=== PATIENT | female | born 1985 | race Caucasian/White ===

== ENCOUNTER 2019-07-18 20:12 | Emergency (ER) | payer OTHER, SELFPAY ==
--- NOTE | ~2019-07-18 | XR_ITS ---
EXAMINATION: XR chest 2V 07/18/2019 21:01 INDICATION: Chest pain. PROCEDURE: 2 view chest COMPARISON: No prior studies for comparison. FINDINGS: The lungs are clear. The cardiomediastinal silhouette is within normal limits. There are no pleural effusions. There is no pneumothorax suspected. IMPRESSION: 1: NO ACUTE CARDIOPULMONARY DISEASE. Reviewed, dictated and finalized at location A.
--- NOTE | ~2019-07-18 | CT_ITS ---
EXAMINATION: CT cervical spine wo con DATE: 07/18/2019 21:28 INDICATION: Neck pain TECHNIQUE: Computed tomography (CT) of the cervical spine was performed without intravenous contrast. The dose-length product was 417 mGy-cm. Automated exposure control and iterative reconstruction tech [id number] were employed. COMPARISON: None FINDINGS: Straightening of cervical lordosis, likely due to muscle spasm or patient positioning. Vert ebral bodies and disc heights are preserved. Odontoid process within normal limits. No evidence for p erched facet. No paraspinal soft tissue abnormality. Lung apices are normal. Craniovertebral junction is normal. IMPRESSION: 1. No acute abnormality of the cervical spine. Reviewed, dictated and finalized at location A.
[2019-07-18 20:15] VITALS: PULSE 89; PULSE 91; RESP 20; TEMP 37.2; O2SAT 100
--- NOTE | 2019-07-18 20:22 | ECG_ITS ---
Measurements Intervals [place] Rate: 96 P: 30 MA: 171 QRS: 26 QRSD: 80 T: 32 QT: 323 QTc: 408 Interpretive Statements SINUS RHYTHM POSSIBLE LEFT ATRIAL ENLARGEMENT BASELINE ARTIFACT- V6 BORDERLINE ECG Electronically Signed On 07-19-2019 7:46:37 CDT by Jon Gil D.O.
--- NOTE | 2019-07-18 20:29 | ED.CHESTPAIN ---
HPI - Chest Pain General Chief Complaint: Chest Pain Stated Complaint: neck, chest, r arm pain Time Seen by Provider: 07/18/19 20:15 Source: RN notes reviewed History of Present Illness HPI narrative: Patient presents to emergency department from home for right-sided neck pain. Patient states that pain began approximately 1 week ago located in the right posterior lateral neck. Patient states the pain is described as achy in nature and would improve with ibuprofen. Patient states pain has been progressively worsen. She states that approximately 1 month ago she began to have problems with the left side of her neck seen her PCP and been prescribed a muscle relaxer. She states she took muscle relaxer tonight at around 5 PM with no relief. Patient states tonight the pain radiated down into her right superior anterior chest and tingling in her right arm with chest pain and tingling in her arm now resolved. Patient denies any trauma or injury. States pain is improved with laying flat and worse with sitting up and movement. Denies any fevers or chills shortness of breath abdominal pain or any other symptoms. Patient denies any chance of denies being on control pills Related Data Allergies Allergy/AdvReac Type Severity Reaction Status Date / Time No Known Allergies Allergy Verified 07/18/19 20:19 Review of Systems Review of Systems: Narrative: Gen.: Denies fevers or chills Eyes: Denies eye pain or visual change ENT: Denies congestion Respiratory: Denies shortness of breath or cough CV: See HPI GI: Denies abdominal pain nausea, emesis or diarrhea denies burning, urgency, frequency or hematuria Musculoskeletal: See HPI Neuro: De reports tingling of right arm, denies weakness Skin: Denies rash Except as documented, all other systems reviewed and negative [facility] Past Medical History Medical History (Updated 07/19/19 @ 00:17 by Sung Coombs DO) Patient denies significant medical history Social History Social History (Updated 07/18/19 @ 20:30 by Sung Coombs DO) Smoking status: Never smoker Gender identity (if verbalized by the patient): Female Exam Narrative: Exam Narrative: APPEARANCE: No acute distress, nontoxic, resting in bed EYES: EOMI HEENT: Normocephalic, atraumatic, OMM Neck: Supple, no midline tenderness palpation, tender palpation right paravertebral muscle C5-7 and right trapezius muscle, pain increased with rotation of the head to the right RESPIRATORY: No respiratory distress Clear to auscultation bilaterally with no rhonchi wheezing or rales. CARDIOVASCULAR: Regular rate and rhythm without murmurs rubs or gallops. Chest: Tender palpation over the right anterior chest wall ABDOMINAL: Soft, nontender, nondistended, no rebound or guarding MUSCULOSKELETAl: Moves all extremities. No clubbing, cyanosis or edema. Bilateral radial pulse 2+ NEURO: Awake and alert. Following commands, speech normal, no focal deficits muscle strength 5 out of 5 in the bilateral upper extremities SKIN:: Warm, dry. No rashes lesions or abrasions PSYCHIATRIC: Normal affect/mood, Course Course Emergency Course: Patient meets PERC rule criteria and no further testing needs to be performed for pulmonary embolism. Patient states pain is improved with Toradol Discussed with patient results of workup and diagnosis. Discussed need for follow-up with primary care, proper use of medication, and reasons to return to the emergency department. Patient understands and agrees to current treatment plan. Patient has been using methocarbamol and will have her switch to Flexeril Vital Signs Vital signs: Vital Signs Temperature 98.9 F 07/18/19 20:15 Pulse Rate 89 07/18/19 20:15 Respiratory Rate 20 07/18/19 20:15 Pulse Oximetry 100 07/18/19 20:15 Temperature 98.9 F 07/18/19 20:15 Pulse Rate 65 07/18/19 23:12 Respiratory Rate 18 07/18/19 23:12 Blood Pressure 118/81 07/18/19 23:12 Pulse Oximetry
[2019-07-18 20:32] LABS: Basophils Absolute Auto 0.1 K/mm3 (0.0-0.1); Basophils Percent Auto 0.5 % (0.2-1.2); Eosinophils Absolute Auto 0.1 K/mm3 (0-0.3); Hematocrit 39.7 % (37.0-47.0); Hemoglobin 12.1 g/dL (12.0-15.0); Immature Granulocyte Absolute 0.02 K/mm3 (0.00-0.031); Immature Granulocyte Percent A 0.2 % (0-0.5); Lymphocytes Absolute Auto 3.64 K/mm3 (0.9-3.2); Lymphocytes Percent Auto 38.6 % (18.3-44.2); Mean Corpuscular HGB Conc 30.5 g/dl (32-36); Mean Corpuscular Hemoglobin 24.2 pg (26-34); Mean Corpuscular Volume 79.4 fl (80-100); Mean Platelet Volume 9.6 fl (7.4-10.4); Monocytes Absolute Auto 0.6 K/mm3 (0.1-0.6); Monocytes Percent Auto 6.3 % (2.6-8.5); Neutrophils Percent Auto 53.4 % (45.5-73.1); Platelet Count Result 446 k/mm3 (150-375); Red Cell Distribution Width 16.1 % (11.5-14.5); White Blood Count 9.4 K/mm3 (4.5-10.0)
[2019-07-18 20:44] LABS: Blood Urea Nitrogen 11 mg/dL (7-17); Calcium 9.2 mg/dL (8.4-10.2); Carbon Dioxide 25 mmol/L (22-30); Chloride 102 mmol/L (98-107); Estimated Glomerular Filt Rate > 60; Glucose 109 mg/dL (65-105); Partial Thromboplastin Time 28.5 SECONDS (22.3-36.8); Potassium 3.5 mmol/L (3.4-5.0); Prothrombin Time 13.2 Seconds (11.1-14.7); Sodium 138 mmol/L (137-145)
[2019-07-18 20:55] LABS: Troponin I < 0.012 ng/mL (0.000-0.034)
[2019-07-18] MEDS: KETOROLAC 30 MG/ML VIAL (*BKC) IV PUSH (21:04)
[2019-07-18 23:12] VITALS: BP 118/81; PULSE 65; RESP 18; O2SAT 98
[2019-07-18 23:56] LABS: Troponin I < 0.012 ng/mL (0.000-0.034)
[2019-07-19 00:32] VITALS: BP 134/77; PULSE 84; RESP 18; O2SAT 98
== END 2019-07-19 00:33 | disposition home or self-care (01) ==
PROVIDERS: Emergency Provider Emergency Medicine
DX: S16.1XXA Strain of muscle, fascia and tendon at neck level, initial encounter (principal); M62.830 Muscle spasm of back; X58.XXXA Exposure to other specified factors, initial encounter; R94.31 Abnormal electrocardiogram [ECG] [EKG]
CPT/HCPCS: 36415; 71046; 72125; 80048; 84484; 85025; 85610; 85730; 93005; 96374; 99284; J0131; J1885

== ENCOUNTER 2020-03-07 08:19 | Emergency (ER) | payer OTHER, SELFPAY ==
[2020-03-07 08:29] VITALS: BP 133/66; PULSE 102; RESP 18; TEMP 36.4; O2SAT 98
--- NOTE | 2020-03-07 08:31 | ED.NAVMDI ---
HPI - Nausea/Vomiting/Diarrhea General Chief complaint: Nausea/Vomiting/Diarrhea Stated complaint: covid +/abdominal pain and vomiting Time Seen by Provider: 03/07/20 08:22 History of Present Illness HPI Narrative: 35 yo female with recent positive COVID test presents to the ED for abdominal pain, nausea, vomiting. She reports that she has had nausea and vomiting for the past week. Intially seen at urgent care 7 days ago, tested for COVID and prescribed zofran. The zofran was helping, but she has run out. Now she is having bilateral upper abdominal pain as well. She has not tried anything else for her symptoms. She has not contacted her PCP. Additionally she does have a cough. No SOB, fever. Related Data Allergies Allergy/AdvReac Type Severity Reaction Status Date / Time No Known Allergies Allergy Verified 03/07/20 08:34 Review of Systems Review of Systems: All systems reviewed & are unremarkable except as noted in HPI and below Constitutional: Constitutional: Denies chills and Denies fever(s) Cardiovascular: Cardiovascular: Denies chest pain Respiratory: Respiratory: Denies dyspnea Gastrointestinal: Gastrointestinal: Reports abdominal pain, Reports nausea and Reports vomiting Genitourinary: Genitourinary: Denies dysuria Neurologic: Denies confusion, Denies dizziness and Denies weakness PMFSH Past Medical History Medical History Patient denies significant medical history Social History Social History Smoking status: Never smoker Gender identity (if verbalized by the patient): Female Exam Const: General: no acute distress and alert Nutritional Appearance: obese Orientation/consciousness: patient oriented x3 HENMT: Head: normal to inspection Neck: Neck: normal visual inspection and no lymphadenopathy Chest: Chest palpation & inspection: no tenderness Resp: Effort & Inspection: normal respiratory effort Auscultation: clear to auscultation bilaterally, no rales, no rhonchi and no wheezes Cardio: Jugular venous distension: no JVD Rate: regular rate Rhythm: regular rhythm Heart sounds: no murmurs GI: Inspection: non-distended GI Palp: Yes Soft to palpation, Yes Tenderness to palpation present (GI) (epigastrium), No Guarding due to palpation present (GI) and No Rebound tenderness present Skin: General skin exam: normal color Neuro: General: patient oriented x3, moves all extremities, no focal motor deficits and CN's II-XI intact bilaterally Speech: normal speech Extrem: General: no edema Psych: Appearance: well kempt Affect: normal affect Course Vital Signs Vital signs: Vital Signs Temperature 36.4 C L 03/07/20 08:29 Pulse Rate 102 H 03/07/20 08:29 Respiratory Rate 18 03/07/20 08:29 Blood Pressure 133/66 03/07/20 08:29 Pulse Oximetry 98 03/07/20 08:29 Temperature 36.4 C L 03/07/20 08:29 Pulse Rate 72 03/07/20 11:04 Respiratory Rate 18 03/07/20 11:04 Blood Pressure 124/75 03/07/20 11:04 Pulse Oximetry 96 03/07/20 11:04 MDM - Nausea/Vomiting/Diarrhea MDM Narrative Medical decision making narrative: Labs reassuring. Feeling better after treatment. Differential Diagnosis Differential diagnosis: Likely gastroenteritis and dehydration Medical Records Attestation: I reviewed the patient's medical records. Lab Data Attestation: I reviewed the patient's lab results. Result diagrams: 03/07/20 08:39 03/07/20 09:49 Labs: Lab Results 03/07/20 03/07/20 Range/Units 08:39 09:49 WBC 3.5 L (4.5-10.0) K/mm3 RBC 4.93 (4.2-5.4) M/mm3 Hgb 12.1 (12.0-15.0) g/dL Hct 37.7 (37.0-47.0) % MCV 76.5 L (80-100) fl MCH 24.5 L (26-34) pg MCHC 32.1 (32-36) g/dl RDW 15.6 H (11.5-14.5) % Plt Count 215 D (150-375) k/mm3 MPV 10.0 (7.4-10.4) fl Immature Gran % (Auto) 0.3 (0-0.5) % Neut % (
[2020-03-07] MEDS: ONDANSETRON INJ 4 MG/2 ML VIAL IV PUSH (08:55)
[2020-03-07] MEDS: SODIUM CHLORIDE 0.9% IV 1,000 ML 999 ML IV CONT (08:55)
[2020-03-07] MEDS: PANTOPRAZOLE SODIUM IV 40 MG VIAL IV PUSH (08:55)
[2020-03-07 09:06] LABS: Basophils Percent Auto 0.3 % (0.2-1.2); Hematocrit 37.7 % (37.0-47.0); Hemoglobin 12.1 g/dL (12.0-15.0); Immature Granulocyte Absolute 0.01 K/mm3 (0.00-0.031); Immature Granulocyte Percent A 0.3 % (0-0.5); Lymphocytes Absolute Auto 0.93 K/mm3 (0.9-3.2); Mean Corpuscular HGB Conc 32.1 g/dl (32-36); Mean Corpuscular Hemoglobin 24.5 pg (26-34); Mean Corpuscular Volume 76.5 fl (80-100); Monocytes Absolute Auto 0.2 K/mm3 (0.1-0.6); Monocytes Percent Auto 5.2 % (2.6-8.5); Neutrophils Absolute Auto 2.3 K/mm3 (1.3-6.7); Neutrophils Percent Auto 67.2 % (45.5-73.1); Platelet Count Result 215 k/mm3 (150-375); Red Blood Count 4.93 M/mm3 (4.2-5.4); Red Cell Distribution Width 15.6 % (11.5-14.5); White Blood Count 3.5 K/mm3 (4.5-10.0)
[2020-03-07] MEDS: DICYCLOMINE HCL INJ 20 MG/2 ML VIAL IM (10:09)
[2020-03-07 10:28] LABS: Alanine Aminotransferase 14 U/L (4-35); Albumin Level 3.5 g/dL (3.5-5.1); Alkaline Phosphatase 61 U/L (38-126); Anion Gap 6 mmol/L (8-16); Aspartate Amino Transferase 24 U/L (14-36); Bilirubin,Total 0.1 mg/dL (0.2-1.3); Blood Urea Nitrogen 7 mg/dL (7-17); Carbon Dioxide 25 mmol/L (22-30); Chloride 106 mmol/L (98-107); Estimated CRCL calculation 153 ml/min; Estimated Glomerular Filt Rate > 60; Glucose 99 mg/dL (65-105); Lipase 73 U/L (23-300); Sodium 137 mmol/L (137-145)
[2020-03-07 11:04] VITALS: BP 124/75; PULSE 72; RESP 18; O2SAT 96
--- NOTE | 2020-03-07 11:05 | PC.NURSE ---
abd pain reduced to 6/10 and no further nausea
== END 2020-03-07 11:28 | disposition home or self-care (01) ==
PROVIDERS: Emergency Provider Emergency Medicine
DX: U07.1 COVID-19 (principal); R11.2 Nausea with vomiting, unspecified; R10.12 Left upper quadrant pain; R10.11 Right upper quadrant pain
CPT/HCPCS: 36415; 80053; 83690; 85025; 96365; 96372; 96375; 99284; A9270; C9113; J0131; J0500; J2405; J7030

== ENCOUNTER 2020-08-14 08:11 | Outpatient (CLI) | payer OTHER, SELFPAY ==
[2020-08-14 10:07] LABS: Hemoglobin 11.4 g/dL (12.0-15.0); Mean Corpuscular HGB Conc 31.7 g/dl (32-36); Mean Corpuscular Hemoglobin 25.1 pg (26-34); Mean Corpuscular Volume 79.3 fl (80-100); Platelet Count Result 318 k/mm3 (150-375); Red Blood Count 4.54 M/mm3 (4.2-5.4); Red Cell Distribution Width 16.9 % (11.5-14.5); White Blood Count 5.7 K/mm3 (4.5-10.0)
[2020-08-14 10:15] LABS: Glucose 1 Hour PP 50gm Dose 149 mg/dL
[2020-08-14 10:54] LABS: HIV 1/2 Ab P24 Ag Result Negative (Negative)
[2020-08-14 11:09] LABS: Hepatitis B Surface Antigen Negative (Negative); Rubella IgG Antibody 11.8 IU/ML
[2020-08-16 08:55] LABS: Rapid Plasma Reagin Non-Reactive (NonReactive)
[2020-08-18 17:59] LABS: CMV IgG Antibody <0.60 U/mL (<0.60)
== END 2020-08-14 08:12 | disposition home or self-care (01) ==
PROVIDERS: Visit Provider Obstetrics & Gynecology
DX: N92.5 Other specified irregular menstruation (principal)
CPT/HCPCS: 36415; 82947; 84702; 85027; 86592; 86644; 86703; 86747; 86762; 86787; 86850; 86900; 86901; 87086; 87088; 87340; G0432

== ENCOUNTER 2020-08-20 07:04 | Outpatient (CLI) | payer OTHER, SELFPAY ==
[2020-08-20 08:14] LABS: Glucose Fasting Gestational 95 mg/dL (>/=95)
[2020-08-20 10:02] LABS: Glucose 1 Hour Gest 153 mg/dL (>/=180)
[2020-08-20 11:03] LABS: Glucose 2 Hour Gest 135 mg/dL (>/= 155)
[2020-08-20 12:17] LABS: Glucose 3 Hour Gest 65 mg/dL (>/=140)
== END 2020-08-20 07:05 | disposition home or self-care (01) ==
PROVIDERS: Visit Provider Obstetrics & Gynecology
DX: R73.09 Other abnormal glucose (principal)
CPT/HCPCS: 36415; 82951; 82952

== ENCOUNTER 2021-01-07 07:01 | Outpatient (CLI) | payer OTHER, SELFPAY ==
[2021-01-07 07:39] LABS: Hematocrit 32.4 % (37.0-47.0); Hemoglobin 10.3 g/dL (12.0-15.0)
[2021-01-07 08:01] LABS: Glucose Fasting Gestational 102 mg/dL (>/=95)
[2021-01-07 09:45] LABS: Glucose 1 Hour Gest 172 mg/dL (>/=180)
[2021-01-07 10:25] LABS: HIV 1/2 Ab P24 Ag Result Negative (Negative)
[2021-01-07 10:52] LABS: Glucose 2 Hour Gest 123 mg/dL (>/= 155)
[2021-01-07 11:34] LABS: Glucose 3 Hour Gest 71 mg/dL (>/=140)
== END 2021-01-07 07:02 | disposition home or self-care (01) ==
PROVIDERS: PCP Family Medicine; Visit Provider Obstetrics & Gynecology
DX: Z34.91 Encounter for supervision of normal pregnancy, unspecified, first trimester (principal); Z3A.00 Weeks of gestation of pregnancy not specified
CPT/HCPCS: 36415; 82951; 82952; 85014; 85018; 86703; G0432

== ENCOUNTER 2021-03-08 10:32 | Inpatient (IN) | payer OTHER, SELFPAY ==
[2021-03-08] VITALS (122 sets, daily range): BP systolic 58–185; BP diastolic 36–114; PULSE 44–114; RESP 14–23; TEMP 35.8–36.9; O2SAT 86–100; BMI 40.2
--- NOTE | ~2021-03-08 | US_ITS ---
US renal BI 03/10/2021 12:37 Procedure: Realtime transabdominal ultrasound of the kidneys and bladder. Indication: Increased creatinine postdelivery Comparison: No prior studies for comparison. Findings: Renal echotexture is normal bilaterally without hydronephrosis, contour deforming mass or r enal calculus. The right kidney measures 12.1 cm and left kidney measures 12.3 cm. Bladder is not pete quately visualized due to recent an enlarged uterus. No gross abnormalities. Impression: 1: Unremarkable renal ultrasound. No stones, masses or hydronephrosis. Reviewed, dictated and finalized at location B. ENT BILLER Impression: 1: Unremarkable renal ultrasound. No stones, masses or hydronephrosis.
--- NOTE | ~2021-03-08 | US_ITS ---
EXAMINATION: US pelvic complete DATE: 03/10/2021 12:38 INDICATION: History of vaginal bleeding Comparison:No prior studies for comparison. TECHNIQUE: Multiple transabdominal sonographic images of the pelvis performed. FINDINGS: The uterus measures 23 x 12.4 x 9.7 cm. The endometrial complex measures 6.6 mm. Trace flui d in the endometrium. The ovaries are not visualized. Trace free fluid in the right adnexa. There is no free fluid in the pelvis. There are no abnormal masses seen on either side. IMPRESSION: 1. Enlarged uterus. Trace fluid in the endometrium which is normal thickness. 2: Trace free fluid in the pelvis, likely physiologic. Reviewed, dictated and finalized at location B. GENCY MEDICAL DISPATCHER
[2021-03-08 11:07] LABS: Basophils Absolute Auto 0.1 K/mm3 (0.0-0.1); Basophils Percent Auto 0.5 % (0.2-1.2); Eosinophils Percent Auto 0.1 % (0-4.4); Hematocrit 31.4 % (37.0-47.0); Hemoglobin 10.1 g/dL (12.0-15.0); Immature Granulocyte Absolute 0.06 K/mm3 (0.00-0.031); Immature Granulocyte Percent A 0.7 % (0-0.5); Lymphocytes Absolute Auto 1.74 K/mm3 (0.9-3.2); Mean Corpuscular HGB Conc 32.2 g/dl (32-36); Mean Corpuscular Hemoglobin 24.4 pg (26-34); Mean Corpuscular Volume 75.8 fl (80-100); Mean Platelet Volume 10.9 fl (7.4-10.4); Monocytes Absolute Auto 0.7 K/mm3 (0.1-0.6); Monocytes Percent Auto 7.2 % (2.6-8.5); Neutrophils Absolute Auto 6.6 K/mm3 (1.3-6.7); Neutrophils Percent Auto 72.5 % (45.5-73.1); Platelet Count Result 243 k/mm3 (150-375); Red Blood Count 4.14 M/mm3 (4.2-5.4); Red Cell Distribution Width 14.6 % (11.5-14.5); White Blood Count 9.2 K/mm3 (4.5-10.0)
[2021-03-08 11:17] LABS: Alanine Aminotransferase 11 U/L (4-35); Albumin Level 2.8 g/dL (3.5-5.1); Alkaline Phosphatase 488 U/L (38-126); Anion Gap 5 mmol/L (8-16); Aspartate Amino Transferase 17 U/L (14-36); Bilirubin,Total 0.2 mg/dL (0.2-1.3); Blood Urea Nitrogen 14 mg/dL (7-17); Calcium 8.2 mg/dL (8.4-10.2); Carbon Dioxide 19 mmol/L (22-30); Chloride 109 mmol/L (98-107); Creatinine Urine 325.4 mg/dL; Estimated Glomerular Filt Rate > 60; Glucose 90 mg/dL (65-110); Sodium 133 mmol/L (137-145); Uric Acid 6.8 mg/dL (2.5-7.5)
--- NOTE | 2021-03-08 11:33 | PC.NURSE ---
Dr. Raines's office notified of pt's initial BP's and to have MD call.
[2021-03-08] MEDS: ACETAMINOPHEN 500 MG TABLET 1000 MG PO (11:38)
--- NOTE | 2021-03-08 12:05 | PC.NURSE ---
Dr. Raines returned call and informed severe BP's continue and reported CBC and CMP results. also informed of maternal bradycardia at 45-50 and pt is asymptomatic. Order received to admit, start severe hypertensive protocol with Hydralazine, start Magnesium sulfate, EKG, and plan for 1600 C/Section.
--- NOTE | 2021-03-08 12:19 | ECG_ITS ---
Measurements Intervals [place] Rate: 46 P: 15 [place]: 146 QRS: 20 QRSD: 76 T: 31 QT: 446 QTc: 392 Interpretive Statements SINUS BRADYCARDIA ABNORMAL ECG Electronically Signed On 03-08-2021 13:11:29 PRINTING BINDERY ASSISTANT by Jon Gil D.O.
[2021-03-08 12:21] LABS: Add Urine Microscopic? YES; Appearance Urine Cloudy (Clear); Bilirubin Urine Negative (Negative); Blood Urine 1+ (Negative); Color Urine Yellow (Yellow); Glucose Urine UA Negative (Negative); Ketones Urine Negative (Negative); Leukocyte Esterase Ur Negative LEU/UL (Negative); Mucus Urine Rare /lpf; Nitrate Urine Negative (Negative); Protein Urine 3+ mg/dL (Negative); RBC Urine 0-2 /hpf (0-2); Specific Grav Ur 1.028 (1.001-1.035); Squamous Epithelial Cell Urine Moderate /hpf (Few); Urobilinogen Urine Negative mg/dL (<2.0); WBC Urine 0-3 /hpf
[2021-03-08 12:43] LABS: Total Protein Urine Random > 600 mg/dL
[2021-03-08] MEDS: LACTATED RINGERS 1,000 ML 75 ML IV CONT (13:00)
[2021-03-08] MEDS: hydrALAZINE HCL 20 MG/ML VIAL 5 MG IV PUSH (13:04)
[2021-03-08] MEDS: MAGNESIUM SULF 4 GM/WATER100ML 4 GM/100 ML BAG IVPB (13:13)
--- NOTE | 2021-03-08 13:15 | LDADM ---
This patient, Malcolm Gilmore, was admitted to [facility] on 03/08/21 at 10:32. Plans for surgery/ and pain management were discussed with patient. Patient/family oriented to hospital policies and general routines including ID bracelet, bed and alarms, visiting hours, pain management, procedures, bathroom and other care routines, personal items, smoking policy, room service/diet and guest tray routines, infant security routines, and visiting hours. Patient/Family are encouraged to report perceived risks to care and to ask questions if they do not understand what they are told or what they should do. See OBIX for further documentation.
[2021-03-08] MEDS: MAGNESIUM SULF 20GM/WATER500ML 500 ML 50 MG IV CONT (13:42)
--- NOTE | 2021-03-08 15:36 | WPDANESEPPF ---
Anes - Initial Pre Proc Eval Procedure: Operation Date: 03/08/21 16:00 Proposed Procedures p Section - Anthony Raines MD Date/Time: 03/08/21 15:36 Surgeon: Anthony Raines MD Pre Op Diagnosis: HIP Eval Patient Data Age: 36 Gender: F Height: 1.73 m Weight: 120 kg Last Vital Signs Temp 36.9 C 03/08/21 13:13 Pulse 61 03/08/21 15:30 Resp 16 03/08/21 14:00 BP 158/93 H 03/08/21 15:30 Pulse Ox 99 03/08/21 15:32 Allergies Allergy/AdvReac Type Severity Reaction Status Date / Time No Known Allergies Allergy Verified 03/02/21 12:38 Home Medications Medication Instructions Recorded Confirmed Type famotidine [Pepcid] 20 mg PO BID #30 tablet 03/07/20 03/08/21 Rx ondansetron HCl [Zofran] 4 mg PO Q6H PRN #10 tablet 03/07/20 03/08/21 Rx ferrous sulfate 325 mg PO DAILY 03/02/21 03/08/21 History sertraline [Zoloft] 25 mg PO DAILY 03/02/21 03/08/21 History PNV cmb#95-ferrous fumarate-FA 1 tablet PO DAILY 03/08/21 03/08/21 History [] Laboratory Tests 03/08/21 03/08/21 03/08/21 10:56 10:56 10:56 WBC 9.2 K/mm3 K/mm3 (4.5-10.0) RBC 4.14 M/mm3 L M/mm3 (4.2-5.4) Hgb 10.1 g/dL L g/dL (12.0-15.0) Hct 31.4 % L % (37.0-47.0) MCV 75.8 fl L fl (80-100) MCH 24.4 pg L pg (26-34) MCHC 32.2 g/dl g/dl (32-36) RDW 14.6 % H % (11.5-14.5) Plt Count 243 k/mm3 k/mm3 (150-375) MPV 10.9 fl H fl (7.4-10.4) Immature Gran % (Auto) 0.7 % H % (0-0.5) Neut % (Auto) 72.5 % % (45.5-73.1) Lymph % (Auto) 19.0 % % (18.3-44.2) Boyd % (Auto) 7.2 % % (2.6-8.5) Eos % (Auto) 0.1 % % (0-4.4) Baso % (Auto) 0.5 % % (0.2-1.2) Lymph # (Auto) 1.74 K/mm3 K/mm3 (0.9-3.2) Boyd # (Auto) 0.7 K/mm3 H K/mm3 (0.1-0.6) Eos # (Auto) 0.0 K/mm3 K/mm3 (0-0.3) Baso # (Auto) 0.1 K/mm3 K/mm3 (0.0-0.1) Abs Immat Gran (auto) 0.06 K/mm3 H K/mm3 (0.00-0.031) Absolute Neuts (auto) 6.6 K/mm3 K/mm3 (1.3-6.7) Absolute Nucleated RBC 0.0 K/mm3 K/mm3 (0.0-0.012) Nucleated RBC % 0.0 % % (0.0-0.2) Sodium 133 mmol/L L mmol/L (137-145) Potassium 4.0 mmol/L mmol/L (3.4-5.0) Chloride 109 mmol/L H mmol/L (98-107) Carbon Dioxide 19 mmol/L L mmol/L (22-30) Anion Gap 5 mmol/L L mmol/L (8-16) BUN 14 mg/dL D mg/dL (7-17) Creatinine 0.90 mg/dL mg/dL (0.7-1.0) Estim Creat Clear Calc Not Reportable Estimated GFR > 60 (59 - ) Glucose 90 mg/dL mg/dL (65-110) Uric Acid 6.8 mg/dL mg/dL (2.5-7.5) Calcium 8.2 mg/dL L mg/dL (8.4-10.2) Total Bilirubin 0.2 mg/dL mg/dL (0.2-1.3) AST 17 U/L U/L (14-36) ALT 11 U/L U/L (4-35) Alkaline Phosphatase 488 U/L H U/L (38-126) Total Protein 5.0 g/dL L g/dL (6.3-8.2) Albumin 2.8 g/dL L g/dL (3.5-5.1) Urine Color Urine Appearance Urine pH Ur Specific [place] Urine Protein Urine Glucose (UA) Urine Ketones Ur Blood (Man) Urine Nitrate Urine Bilirubin Urine Urobilinogen Leukocyte Esterase Rfl Urine RBC Urine WBC Ur Squamous Epith Cells Hyaline Casts Urine Mucus U Random Total Protein > 600 mg/dL mg/dL Urine Creatinine 325.4 mg/dL mg/dL Protein/Creat Ratio 2 > 1.84 mg/mg H mg/mg (0-0.20) RPR Blood Type Antibody Screen 03/08/21 03/08/21 03/08/21 10:56 13:08 13:08 WBC RBC Hgb Hct MCV MCH
[2021-03-08] MEDS: SCOPOLAMINE 1.5 MG PATCH TRANSDERM (15:49)
--- NOTE | 2021-03-08 16:12 | PC.NURSE ---
Magnesium sulfate turned off per anesthesia request for pt transport to OR.
--- NOTE | 2021-03-08 16:16 | PM.IMHP ---
H&P: HPI History of Present Illness Date/Time: 03/08/21 16:16 36-year-old 2 para 1001 female presents at 36 weeks with complaints of the past 24-48 hours headache without visual changes also mild cramping. She has had good movement and no bleeding. Denies any visual changes. care to this point has been essentially uncomplicated no significant issues. When seen in the office today blood pressure was 150 to 160 over 90s and 3+ proteinuria. Sent for evaluation to labor and delivery with continued persistent elevated blood pressures with headache unrelieved by Tylenol and labs essentially normal other than proteinuria. Chief Complaint: Headache Review of Systems Review of Systems: All systems reviewed & are unremarkable except as noted in HPI and below PMFSH Past Medical History Medical History Anxiety GERD (gastroesophageal reflux disease) Hypertension Family History Family History Father Deaf Hypertension Mother Deaf Breast cancer in female Grandparent Breast cancer in female Social History Social History Smoking status: Never smoker Second hand tobacco smoke exposure: No Substance use: never Gender identity (if verbalized by the patient): Female Spiritual care concerns: No Meds Home Medications and Allergies Home Medications Medication Instructions Recorded Confirmed Type famotidine [Pepcid] 20 mg PO BID #30 tablet 03/07/20 03/08/21 Rx ondansetron HCl [Zofran] 4 mg PO Q6H PRN #10 tablet 03/07/20 03/08/21 Rx ferrous sulfate 325 mg PO DAILY 03/02/21 03/08/21 History sertraline [Zoloft] 25 mg PO DAILY 03/02/21 03/08/21 History PNV cmb#95-ferrous fumarate-FA 1 tablet PO DAILY 03/08/21 03/08/21 History [] Allergies Allergy/AdvReac Type Severity Reaction Status Date / Time No Known Allergies Allergy Verified 03/02/21 12:38 Vital Signs Vital Signs - 24 hr 03/08/21 11:15 03/08/21 11:19 03/08/21 11:24 Temperature Pulse Rate 45 L Respiratory Rate Blood Pressure 172/88 H Blood Pressure [Right Arm] 172/88 H Pulse Oximetry 99 98 03/08/21 11:26 03/08/21 11:28 03/08/21 11:29 Temperature Pulse Rate 45 L Respiratory Rate Blood Pressure Blood Pressure [Right Arm] 172/88 H Pulse Oximetry 98 99 03/08/21 11:31 03/08/21 11:34 03/08/21 11:39 Temperature Pulse Rate 44 L Respiratory Rate Blood Pressure 161/82 H Blood Pressure [Right Arm] Pulse Oximetry 99 97 03/08/21 11:44 03/08/21 11:46 03/08/21 11:47 Temperature Pulse Rate 45 L Respiratory Rate Blood Pressure 166/84 H Blood Pressure [Right Arm] Pulse Oximetry 99 98 03/08/21 11:52 03/08/21 11:57 03/08/21 12:01 Temperature Pulse Rate 44 L Respiratory Rate Blood Pressure 169/84 H Blood Pressure [Right Arm] Pulse Oximetry 100 99 03/08/21 12:02 03/08/21 12:07 03/08/21 12:12 Temperature Pulse Rate Respiratory Rate Blood Pressure Blood Pressure [Right Arm] Pulse Oximetry 99 98 100 03/08/21 12:57 03/08/21 13:01 03/08/21 13:06 Temperature Pulse Rate 45 L 44 L 45 L Respiratory Rate Blood Pressure 185/97 H 179/90 H 176/92 H Blood Pressure [Right Arm] Pulse Oximetry 100 03/08/21 13:11 03/08/21 13:13 03/08/21 13:16 Temperature 36.9 C Pulse Rate 56 L 44 L 48 L Respiratory Rate 16 Blood Pressure 167/97 H 167/97 H 164/89 H Blood Pressure [Right Arm] Pulse Oximetry 99 99 99 03/08/21 13:21 03/08/21 13:26 03/08/21 13:31 Temperature Pulse Rate 51 L Respiratory Rate Blood Pressure 150/83 H Blood Pressure [Right Arm] Pulse Oximetry 99 97 98 03/08/21 13:32 03/08/21 13:36 03/08/21 13:41 Temperature Pulse Rate 51 L 50 L Respiratory Rate Blood Pressure 157/85 H 146/86 H Blo
[2021-03-08] MEDS: ceFAZolin 3 GM/D5W 100 ML 100 ML IVPB (16:20)
--- NOTE | 2021-03-08 16:22 | WPDHPUPDATE1 ---
History and Physical Update Update Date/Time: 03/08/21 16:22 History and Physical has been reviewed, including an updated exam of the patient. There are NO changes in the patient's condition. Risks, benefits, and alternatives have been discussed and questions answered. Patient agrees to proceed with procedure.
--- NOTE | 2021-03-08 17:47 | P.PCNOB_ITS ---
OB - Delivery Note Procedure Procedure: Procedures Operation Date: 03/08/21 16:00 Actual Procedure Side Surgeon p Section Anthony Raines MD events: Previous and Pre-Eclampsia Route of delivery: Specimen: Yes Quantitative Blood Loss (ml): 2,060 Anesthesia type: Spinal Disposition: PACU Complications: Intraoperative hemorrhage Narrative: Patient prepped draped in usual manner for this procedure. Pfannenstiel incision was made carried down to the fascia which was extended bilaterally the length of the skin incision. Superiorly and inferiorly dissected away from the rectus muscles. Peritoneum was entered extended the length of the incision to enter the peritoneum. Adhesions were noted of the bladder flap to the anterior portion of the uterus along with thin uterine segment and anterior placenta. Incision was then made after the bladder flap was developed with extension of the uterine incision bilaterally bluntly. Vertex was grasped and delivered without difficulty. Cord was clamped and cut and placenta was removed manually. Placenta was fragmented and removed in multiple pieces. Prior to closing the uterine incision of the placenta did appear to be entirely removed and the lower segment was identified to the point where approximation was able to be performed. The uterine incision was approximated using 0 Monocryl in a running interlocking manner with good approximation hemostasis noted. There was a area of bleeding in the midline below the incision which was rendered hemostatic with a [id number] suture of 0 Monocryl. The revaluation revealed the uterine incision to be hemostatic and there being no bleeding below the fascia. The fascial incision was then approximated using 0 Vicryl from the left angle to midline and the right angle to the midline with good approximation hemostasis noted. Subcutaneous tissue was approximated using 0 plain suture and merly were used to approximate the skin edges. Has the patient was being cleaned and moved to the stretcher other still a fair amount of oozing and therefore Bakri balloon will be placed. We will continue to monitor bleeding at this point. Also blood work is obtained and I have discussed with the amount of bleeding that she has had and there is a fair chance that she will need transfusion which he states good understanding of. Carmine Baby Weeks of gestation at delivery: 36 gender: Male Weight (pounds): 5 Weight (ounces): 11 score one minute: 5 score five minutes: 9
--- NOTE | 2021-03-08 17:51 | SUR.OPER ---
Dr. Raines called back to OR due to continued vaginal bleeding.
--- NOTE | 2021-03-08 18:02 | SUR.OPER ---
Bakri balloon was placed by Dr. Raines. 150 ml of NS was inserted. Vaginal packing inserted by .
--- NOTE | 2021-03-08 18:12 | SUR.OPER ---
Dr. Raines called back into OR for drop in BP and concern of internal bleeding.
--- NOTE | 2021-03-08 18:39 | SUR.OPER ---
Abdominal and suprapubic prep with duraprep by Slava COLLINS
--- NOTE | 2021-03-08 18:39 | SUR.OPER ---
dr lozada and dr smith in OR preparing for exploratory laparotomy at 1840. initial surgical count done by cliff keller and brent sesay. instruments,laps, and sharps counted. counts correct. second sount performed by kim roberts rn and brent giang. instruments, laps and sharps counted. counts correct. third count peformed by kim guerrero rn and familia giang. laps and sharps counted. counts correct.
--- NOTE | 2021-03-08 18:39 | SUR.OPER ---
Anesthesia Class 3 and Fire Risk 2.
--- NOTE | 2021-03-08 18:41 | SUR.OPER ---
Vaginal packing removed by Dr. Neri
--- NOTE | 2021-03-08 18:42 | SUR.OPER ---
Leighton balloon deflated and removed by Dr. Neri.
[2021-03-08 18:43] LABS: Hematocrit 26.2 % (37.0-47.0)
--- NOTE | 2021-03-08 18:45 | SUR.OPER ---
New time out completed.
[2021-03-08 19:43] LABS: INR 1.2; Prothrombin Time 15.1 Seconds (11.1-14.7)
[2021-03-08 19:44] LABS: Partial Thromboplastin Time 30.8 SECONDS (22.3-36.8)
[2021-03-08 19:50] LABS: Fibrinogen 139 mg/dl (215-510)
[2021-03-08 20:21] LABS: Hematocrit 26.8 % (37.0-47.0); Hemoglobin 8.8 g/dL (12.0-15.0); Mean Corpuscular HGB Conc 32.8 g/dl (32-36); Mean Corpuscular Hemoglobin 26.5 pg (26-34); Mean Corpuscular Volume 80.7 fl (80-100); Platelet Count Result 187 k/mm3 (150-375); Red Blood Count 3.32 M/mm3 (4.2-5.4); Red Cell Distribution Width 16.1 % (11.5-14.5); White Blood Count 16.8 K/mm3 (4.5-10.0)
--- NOTE | 2021-03-08 20:24 | PC.NURSE ---
gamal watts inserted via dr lozada and dr smith. 125ml of sterile saline injected.
--- NOTE | 2021-03-08 20:31 | P.OPB_ITS ---
Procedure Note - Brief Procedure Note - Brief Date of procedure: 03/08/21 Pre-op diagnosis: HIP Eval postop hemorrhage Post-op diagnosis: other (1. postop hemorrhage/2. L broad ligament hematoma/3. bladder flap bleeding) Procedure performed: exploratory laparotomy Description of procedure: Patient prepped and draped in usual manner for this procedure. [place] were removed subcutaneous sutures and fascial incision sutures were all removed at. At this point [id number] of old blood was noted. Three evaluation of the sub fascial tissue revealed left broad ligament broad ligament hematoma which was evaluated throughout the case and did not change in size. This was oozing from the left edge where it attached to the uterus. Also found was a small vessel bleeding the to wean the bladder and the lower segment of the uterus. Through evaluation throughout revealed no other abnormalities. There was no other bleeding and the uterus was well contracted. The 1st the bleeder between the bladder and the uterus was isolated tied and cauterized. With hemostasis achieved. Thorough evaluation again throughout revealed no change in the hematoma on the left though it continued to ooze at the edge by the uterine incision. The right adnexa and the rest of the uterine incision was noted be hemostatic of the small area which was rendered hemostatic with a [id number] suture. Initially the hematoma was attempted to be rendered hemostatic with a [id number] suture which I did not stop the oozing that was occurring. The uterus was then exteriorized and the broad ligament was opened and the area was palpated of the hematoma again where it originated at the uterine incision. Two [id number] sutures in this area were placed in modified B Whyte suture with hemostasis achieved. As noted above the left broad ligament hematoma did not change in size throughout the case. All of the areas of oozing were thoroughly evaluated for the next 30minutes with in no bleeding or oozing noted. At this point we were reassured that there was no sign further bleeding and the fascia was approximated using 0 Vicryl from the left angle to midline right angle to the midline and the subcutaneous tissue was irrigated approximated 0 plain suture and merly were used to approximate the skin edges. At this point Bakri balloon was placed in the uterus empirically and filled with 125-130 cc of fluid. Vaginal packing was also placed. Patient was then placed on stretcher and moved to the recovery room. Findings were discussed with the patient who had been consented prior to the procedure for the above as well as potential for hysterectomy. We will continue to monitor closely for any further evidence bleeding though at this point as noted above she does seem to have stabilized and clinically she is stable. Anesthesia: epidural Surgeon: Anthony Raines MD Estimated blood loss (mL): 325 Urine output (mL): 50 Drains: Yes Packing: Yes Pathology: none sent Complications: No immediate complications Condition: stable Disposition: other ( Postop area on labor and delivery) Findings: as noted above left broad ligament hematoma and bleeding in the area between the bladder and the lower segment of the uterus. also hemoperitoneum as noted above.
[2021-03-08 20:55] LABS: D Dimer > 20.00 ug/mL (<0.48)
[2021-03-08] MEDS: MORPHINE SULFATE INJ (*CRX) 10 MG/ML AMP 3 MG IV PUSH ×2 (21:15→21:30)
[2021-03-08 21:31] LABS: Alanine Aminotransferase 10 U/L (4-35); Albumin Level 1.9 g/dL (3.5-5.1); Alkaline Phosphatase 356 U/L (38-126); Anion Gap 5 mmol/L (8-16); Aspartate Amino Transferase 22 U/L (14-36); Bilirubin,Total 0.4 mg/dL (0.2-1.3); Blood Urea Nitrogen 13 mg/dL (7-17); Calcium 7.3 mg/dL (8.4-10.2); Carbon Dioxide 18 mmol/L (22-30); Chloride 108 mmol/L (98-107); Estimated CRCL calculation 95 ml/min; Estimated Glomerular Filt Rate > 60; Glucose 143 mg/dL (65-110); Potassium 4.1 mmol/L (3.4-5.0); Sodium 131 mmol/L (137-145)
[2021-03-08] MEDS: SODIUM CHLORIDE 0.9% IV 250 ML 30 ML IV CONT (22:40)
[2021-03-08] MEDS: FUROSEMIDE INJ 40 MG/4 ML VIAL 20 MG IV PUSH (23:50)
--- NOTE | 2021-03-08 23:50 | PC.NURSE ---
rn at bedside scanning bladder. scant to no urine present in bladder per bladder scanner. 15 ml of urine present in catheter at this time.
[2021-03-09] VITALS (88 sets, daily range): BP systolic 62–143; BP diastolic 26–89; PULSE 74–114; RESP 16–19; TEMP 36.2–36.6; O2SAT 94–100
--- NOTE | 2021-03-09 03:15 | PC.NURSE ---
dr leslie at pt bedside assessing pt for consult. given update. plan of care discussed. no new orders received at this time.
--- NOTE | 2021-03-09 03:17 | PM.IMCN ---
Assessment and Plan Assessment and plan (1) Mild pre-eclampsia in third trimester: Code(s): O14.03 - Mild to moderate pre-eclampsia, third trimester Status: Acute (2) hemorrhage: Code(s): O72.1 - Other immediate hemorrhage Status: Acute (3) Hypotension: Code(s): I95.9 - Hypotension, unspecified Status: Acute (4) Low urine output: Code(s): R34 - Anuria and oliguria Status: Acute Additional Plan # low urine output likely pre renal due to hypotension and blood loss postoperatively. The weighted output is already peaking up with aggressive IV fluid resuscitation that was performed postoperatively. I am hopeful that the renal function is preserved however she is at risk for developing ATN due to above and will need to closely monitor her renal function and urine output. We should maintain her blood pressure as normal as possible at this point and will avoid any nephrotoxic drugs like ibuprofen and ketorolac which I have held/stopped at this point. All the bleeding sources has been evaluated by the primary team with exploratory laparotomy and currently I do not see any further bleed at least in the uterine Bakri balloon that has been placed. # Acute postoperative anemia with loss of approximately 4 L blood during the surgery. Has been transfused 4 units of PRBC already. Will recheck her H&H/CBC in the morning and transfuse as needed. # hypotension postoperatively due to blood loss which has improved now with IV fluid resuscitation and blood transfusion # elevated alkaline phosphatase unclear etiology? Cholestasis of continue to monitor now she is post caesarean # history of preeclampsia # delivery 03/08/2021 # DVT prophylaxis SCDs # full code status Thank you for consultation. We will follow along with you HPI Data of Consult Consult date: 03/09/21 Requesting Physician: Anthony Raines MD Primary Care Provider: Remington Finley MD Consult Narrative Narrative: Malcolm Gilmore is a 36 year old female who was admitted today for elective section. She has a history of preeclampsia and hence an elective section was planned. Her surgery was done in the evening yesterday. Which was complicated with postoperative bleeding for which exploratory laparotomy was performed which revealed left broad ligament hematoma. Bleeding vessels were tied and cauterized. She was then placed on Bakri balloon empirically and also vaginal packing was done. She had noted blood loss of approximately 3881 cc as reported by the nursing staff. She was also noted to be hypotensive in 50 60 systolic throughout and was maintained with multiple doses of IV fluids and received a total of 6-7 L of fluids. Because of the hemorrhage she has also been transfused 2 unit of PRBC earlier last night and is planned to transfuse 2 more units of PRBC. She is noted to have hemoglobin lowered down to 8 after the surgery and after 2 unit of trend transfusion it went up to 8.8. Postoperatively she was noted to have low urine output. Her labs done last night revealed creatinine of 1. We were consulted with with low urine output that she has been having postoperatively. Upon my evaluation the urine output has slightly picked up to 25 cc an hour from 5 cc in 3 hours postoperatively. The patient herself denies any complain currently and states she is feeling better. She denies any pain. She denies any shortness of breath or chest pain. Review of Systems Review of Systems: - CONSTITUTIONAL: Denies weight loss, fever and chills. - HEENT: Denies changes in vision and hearing - RESPIRATORY: Denies SOB and cough. - CV: Denies palpitations and CP. - GI: Denies abdominal pain, nausea, vomiting and diarrhea. - : Denies dysuria and urinary frequency. - MSK: Denies myalgia and joint pain. - SKIN: Denies rash and pruritus. - NEUROLOGICAL: Denies headache and
[2021-03-09 05:52] LABS: Basophils Percent Auto 0.1 % (0.2-1.2); Hemoglobin 12.3 g/dL (12.0-15.0); Immature Granulocyte Absolute 0.08 K/mm3 (0.00-0.031); Immature Granulocyte Percent A 0.4 % (0-0.5); Lymphocytes Absolute Auto 1.93 K/mm3 (0.9-3.2); Lymphocytes Percent Auto 9.5 % (18.3-44.2); Mean Corpuscular HGB Conc 34.2 g/dl (32-36); Mean Corpuscular Hemoglobin 27.3 pg (26-34); Mean Platelet Volume 11.3 fl (7.4-10.4); Monocytes Absolute Auto 1.1 K/mm3 (0.1-0.6); Monocytes Percent Auto 5.4 % (2.6-8.5); Neutrophils Absolute Auto 17.2 K/mm3 (1.3-6.7); Neutrophils Percent Auto 84.6 % (45.5-73.1); Platelet Count Result 198 k/mm3 (150-375); Red Cell Distribution Width 14.9 % (11.5-14.5); White Blood Count 20.4 K/mm3 (4.5-10.0)
[2021-03-09 06:03] LABS: Albumin Level 2.1 g/dL (3.5-5.1); Alkaline Phosphatase 305 U/L (38-126); Anion Gap 9 mmol/L (8-16); Aspartate Amino Transferase 25 U/L (14-36); Bilirubin,Total 0.3 mg/dL (0.2-1.3); Blood Urea Nitrogen 15 mg/dL (7-17); Calcium 7.4 mg/dL (8.4-10.2); Carbon Dioxide 17 mmol/L (22-30); Chloride 104 mmol/L (98-107); Estimated CRCL calculation 74 ml/min; Estimated Glomerular Filt Rate 47; Glucose 159 mg/dL (65-110); Potassium 5.8 mmol/L (3.4-5.0); Sodium 130 mmol/L (137-145)
[2021-03-09 06:14] LABS: Alanine Aminotransferase 20 U/L (4-35); Uric Acid 6.4 mg/dL (2.5-7.5)
[2021-03-09] MEDS: KCL 20 MEQ/D5/0.45% SOD CHL 1,000 ML 125 ML IV CONT (06:53)
--- NOTE | 2021-03-09 07:07 | PM.OBPNVD ---
OB - PN: Subj Subjective Date/time seen: 03/09/21 07:07 Patient states that she feels well this morning with her pain well controlled. Overall doing well and on liquid diet. We reviewed the findings of yesterday and her surgical findings and outcome and planned for today. She and her state good understanding questions are answered and will proceed as planned below. OB - PN: Obj Data Labs CBC & Chem 7: 03/08/21 20:09 03/09/21 05:33 Labs: Laboratory Results - last 24 hr 03/08/21 03/08/21 03/08/21 10:56 10:56 10:56 WBC 9.2 RBC 4.14 L Hgb 10.1 L Hct 31.4 L MCV 75.8 L MCH 24.4 L MCHC 32.2 RDW 14.6 H Plt Count 243 MPV 10.9 H Immature Gran % (Auto) 0.7 H Neut % (Auto) 72.5 Lymph % (Auto) 19.0 [place] % (Auto) 7.2 Eos % (Auto) 0.1 Baso % (Auto) 0.5 Lymph # (Auto) 1.74 [place] # (Auto) 0.7 H Eos # (Auto) 0.0 Baso # (Auto) 0.1 Abs Immat Gran (auto) 0.06 H Absolute Neuts (auto) 6.6 Absolute Nucleated RBC 0.0 Nucleated RBC % 0.0 PT INR APTT Fibrinogen D-Dimer Sodium 133 L Potassium 4.0 Chloride 109 H Carbon Dioxide 19 L Anion Gap 5 L BUN 14 D Creatinine 0.90 Estim Creat Clear Calc Not Reportable Estimated GFR > 60 Glucose 90 Uric Acid 6.8 Calcium 8.2 L Total Bilirubin 0.2 AST 17 ALT 11 Alkaline Phosphatase 488 H Total Protein 5.0 L Albumin 2.8 L Urine Color Urine Appearance Urine pH Ur Specific [place] Urine Protein Urine Glucose (UA) Urine Ketones Ur Blood (Man) Urine Nitrate Urine Bilirubin Urine Urobilinogen Leukocyte Esterase Rfl Urine RBC Urine WBC Ur Squamous Epith Cells Hyaline Casts Urine Mucus U Random Total Protein > 600 Urine Creatinine 325.4 Protein/Creat Ratio 2 > 1.84 H Blood Type Antibody Screen Crossmatch 03/08/21 03/08/21 03/08/21 10:56 13:08 18:35 WBC RBC Hgb 8.0 L Hct 26.2 L MCV MCH MCHC RDW Plt Count MPV Immature Gran % (Auto) Neut % (Auto) Lymph % (Auto) [place] % (Auto) Eos % (Auto) Baso % (Auto) Lymph # (Auto) [place] # (Auto) Eos # (Auto) Baso # (Auto) Abs Immat Gran (auto) Absolute Neuts (auto) Absolute Nucleated RBC Nucleated RBC % PT INR APTT Fibrinogen D-Dimer Sodium Potassium Chloride Carbon Dioxide Anion Gap BUN Creatinine Estim Creat Clear Calc Estimated GFR Glucose Uric Acid Calcium Total Bilirubin AST ALT Alkaline Phosphatase Total Protein Albumin Urine Color Yellow Urine Appearance Cloudy H Urine pH 6.0 Ur Specific [place] 1.028 Urine Protein 3+ H Urine Glucose (UA) Negative Urine Ketones Negative Ur Blood (Man) 1+ H Urine Nitrate Negative Urine Bilirubin Negative Urine Urobilinogen Negative Leukocyte Esterase Rfl Negative Urine RBC 0-2 Urine WBC 0-3 Ur Squamous Epith Cells Moderate H Hyaline Casts 1-2 Urine Mucus Rare U Random Total Protein Urine Creatinine Protein/Creat Ratio 2 Blood Type AB Positive Antibody Screen Negative Crossmatch See Detail 03/08/21 03/08/21 03/08/21 19:23 20:09 21:10 WBC 16.8 H RBC 3.32 L Hgb 8.8 L Hct 26.8 L MCV 80.7 D MCH 26.5 D MCHC 32.8 RDW 16.1 H Plt Count 187 MPV 11.0 H Immature Gran % (Auto) Neut % (Auto) Lymph % (Auto) [place] % (Auto) Eos % (Auto) Baso % (Auto) Lymph # (Auto) [place] # (Auto) Eos # (Auto) Baso # (Auto) Abs Immat Gran (auto) Absolute Neuts (auto) Absolute Nucleated RBC Nucleated RBC % PT 15.1 H INR 1.2 APTT 30.8 Fibrinogen 139 L D-Dimer > 20.00 H Sodium 131 L Potassium 4.1 Chloride 108 H Carbon Dioxide 18 L Anio
[2021-03-09] MEDS: MAGNESIUM SULF 20GM/WATER500ML 500 ML 25 MG IV CONT (08:30)
--- NOTE | 2021-03-09 09:30 | PC.NURSE ---
Mother called out for assist with feeding, reporting has been bottle fed and fist time at breast. Mother breastfed first child for 2 years. Infant is able to freely thrust tongue past gum ridge and flange both lips. Discussed mother's HX of large QBL and how this may impact milk supply. Advised mother to continue to put to breast each feeding. Mother may wish to initiate pumping if infant is not nursing effectively for increased stimulation of milk supply. Discussed establishing in the infant may be more difficult due to their immaturity, may be less alert, have less stamina, and have greater difficulty with latch, suck, and swallow. ?s feeding may impact mother?s milk supply, pumping may need to be initiated until milk supply is well established and infant is able to effectively breastfeed without supplementation. Reviewed infant feeding cues, frequencies, duration of feedings, feeding elimination flow sheet, and signs of adequate intake. Demonstrated stimulation techniques to wake infant for feeding. Assisted with to breast. Reviewed positioning/alignment in cross cradle, holding breast in ?U? hold and guided asymmetrical latch on. Reviewed rational for each. made weak attempts to latch. Mother is comfortable with independently putting to breast. Suggested mother attempt for 5 minutes then follow with supplementation. Discussed initiating pumping, mother would like to wait.
--- NOTE | 2021-03-09 10:21 | WPDANLDPN2 ---
Anes-Prog Note L&D Date/Time: 03/09/21 10:21 Comfortable throughout: section Neuraxial method: spinal Epidural/Spinal procedure site: clean & non-tender Neuro status: Neuro function grossly intact. Cardiovascular status: normal Respiratory status: normal Airway patency: baseline Mental status: baseline Post-Op hydration status: normal Vital Signs: Last Vital Signs Temp 97.4 F L 03/09/21 08:25 Pulse 83 03/09/21 08:25 Resp 16 03/09/21 08:25 BP 125/76 03/09/21 08:25 Pulse Ox 99 03/09/21 08:25 Pain score (VAS): 0 I/O: Intake & Output 03/08/21 03/09/21 03/09/21 23:59 07:59 15:59 Intake Total 800 2931 Output Total 1796 418 Balance -996 2513 Post-procedural complaints: none Patient feedback: Patient satisfied with anesthetic care.
--- NOTE | 2021-03-09 10:22 | WPDANLDNPN2 ---
Anes-Prog Note L&D-Neuraxial Date/Time: 03/09/21 10:22 Neuraxial medications: intrathecal PF morphine Opiod-related complaints: none Patient feedback: Patient satisfied with post-operative pain management.
--- NOTE | 2021-03-09 10:22 | WPDANESPN ---
Anes - Prog Note Post-Op Date/Time: 03/09/21 10:22 Vital Signs: Last Vital Signs Temp 97.4 F L 03/09/21 08:25 Pulse 83 03/09/21 08:25 Resp 16 03/09/21 08:25 BP 125/76 03/09/21 08:25 Pulse Ox 99 03/09/21 08:25 Pain Score (VAS): 0 I/O: Intake & Output 03/08/21 03/09/21 03/09/21 23:59 07:59 15:59 Intake Total 800 2931 Output Total 1796 418 Balance -996 2513 Laboratory Tests 03/09/21 05:33 03/09/21 05:33 03/08/21 03/08/21 03/08/21 10:56 10:56 10:56 WBC 9.2 RBC 4.14 L Hgb 10.1 L Hct 31.4 L MCV 75.8 L MCH 24.4 L MCHC 32.2 RDW 14.6 H Plt Count 243 MPV 10.9 H Immature Gran % (Auto) 0.7 H Neut % (Auto) 72.5 Lymph % (Auto) 19.0 [place] % (Auto) 7.2 Eos % (Auto) 0.1 Baso % (Auto) 0.5 Lymph # (Auto) 1.74 [place] # (Auto) 0.7 H Eos # (Auto) 0.0 Baso # (Auto) 0.1 Abs Immat Gran (auto) 0.06 H Absolute Neuts (auto) 6.6 Absolute Nucleated RBC 0.0 Nucleated RBC % 0.0 PT INR APTT Fibrinogen D-Dimer Sodium 133 L Potassium 4.0 Chloride 109 H Carbon Dioxide 19 L Anion Gap 5 L BUN 14 D Creatinine 0.90 Estim Creat Clear Calc Not Reportable Estimated GFR > 60 Glucose 90 Uric Acid 6.8 Calcium 8.2 L Total Bilirubin 0.2 AST 17 ALT 11 Alkaline Phosphatase 488 H Total Protein 5.0 L Albumin 2.8 L Urine Color Urine Appearance Urine pH Ur Specific [place] Urine Protein Urine Glucose (UA) Urine Ketones Ur Blood (Man) Urine Nitrate Urine Bilirubin Urine Urobilinogen Leukocyte Esterase Rfl Urine RBC Urine WBC Ur Squamous Epith Cells Hyaline Casts Urine Mucus U Random Total Protein > 600 Urine Creatinine 325.4 Protein/Creat Ratio 2 > 1.84 H RPR Blood Type Antibody Screen Crossmatch 11/30/21 11/30/21 11/30/21 10:56 13:08 13:08 WBC RBC Hgb Hct MCV MCH MCHC RDW Plt Count MPV Immature Gran % (Auto) Neut % (Auto) Lymph % (Auto) [place] % (Auto) Eos % (Auto) Baso % (Auto) Lymph # (Auto) [place] # (Auto) Eos # (Auto) Baso # (Auto) Abs Immat Gran (auto) Absolute Neuts (auto) Absolute Nucleated RBC Nucleated RBC % PT INR APTT Fibrinogen D-Dimer Sodium Potassium Chloride Carbon Dioxide Anion Gap BUN Creatinine Estim Creat Clear Calc Estimated GFR Glucose Uric Acid Calcium Total Bilirubin AST ALT Alkaline Phosphatase Total Protein Albumin Urine Color Yellow Urine Appearance Cloudy H Urine pH 6.0 Ur Specific [place] 1.028 Urine Protein 3+ H Urine Glucose (UA) Negative Urine Ketones Negative Ur Blood (Man) 1+ H Urine Nitrate Negative Urine Bilirubin Negative Urine Urobilinogen Negative Leukocyte Esterase Rfl Negative Urine RBC 0-2 Urine WBC 0-3 Ur Squamous Epith Cells Moderate H Hyaline Casts 1-2 Urine Mucus Rare U Random Total Protein Urine Creatinine Protein/Creat Ratio 2 RPR Pending Blood Type AB Positive Antibody Screen Negative Crossmatch See Detail 03/08/21 03/08/21 03/08/21 18:35 19:23 20:09 WBC 16.8 H RBC 3.32 L Hgb 8.0 L 8.8 L Hct 26.2 L 26.8 L MCV 80.7 D MCH 26.5 D MCHC 32.8 RDW 16.1 H Plt Count 187 MPV 11.0 H Immature Gran % (Auto) Neut % (Auto) Lymph % (Auto) [place] % (Auto) Eos % (Auto) Baso % (Auto) Lymph # (Auto) [place] # (Auto) Eos # (Auto) Baso # (Auto) Abs Immat Gran (auto) Absolute Neuts (auto) Absolute Nucleated RBC Nucleated RBC % PT 15.1 H INR 1.2 APTT 30.8 Fibrinogen 139 L D-Dimer > 20.00 H Sodium Potassium Chloride Carbon Dioxide Anion Gap BUN Creatinine Estim Creat Clear Calc
[2021-03-09 10:37] LABS: Rapid Plasma Reagin Non-Reactive (NonReactive)
[2021-03-09] MEDS: ACETAMINOPHEN 325 MG TABLET 650 MG PO ×2 (10:58→17:01)
--- NOTE | 2021-03-09 11:36 | OBPPTRN ---
0820 Patient transferred to post room #290 via W/C. Oriented to unit, room, information board, rooming in, admission packet and security measures. Patient verbalizes understanding.
[2021-03-09 12:20] LABS: Basophils Percent Auto 0.2 % (0.2-1.2); Hematocrit 32.3 % (37.0-47.0); Hemoglobin 11.2 g/dL (12.0-15.0); Immature Granulocyte Absolute 0.06 K/mm3 (0.00-0.031); Immature Granulocyte Percent A 0.4 % (0-0.5); Lymphocytes Absolute Auto 2.26 K/mm3 (0.9-3.2); Lymphocytes Percent Auto 14.6 % (18.3-44.2); Mean Corpuscular HGB Conc 34.7 g/dl (32-36); Mean Corpuscular Hemoglobin 27.9 pg (26-34); Mean Corpuscular Volume 80.5 fl (80-100); Mean Platelet Volume 11.2 fl (7.4-10.4); Monocytes Percent Auto 6.5 % (2.6-8.5); Neutrophils Absolute Auto 12.1 K/mm3 (1.3-6.7); Neutrophils Percent Auto 78.3 % (45.5-73.1); Nucleated Red Blood Cells Perc 0.1 % (0.0-0.2); Platelet Count Result 176 k/mm3 (150-375); Red Blood Count 4.01 M/mm3 (4.2-5.4); Red Cell Distribution Width 15.3 % (11.5-14.5); White Blood Count 15.5 K/mm3 (4.5-10.0)
[2021-03-09 12:35] LABS: Alanine Aminotransferase 12 U/L (4-35); Albumin Level 2.1 g/dL (3.5-5.1); Alkaline Phosphatase 291 U/L (38-126); Anion Gap 6 mmol/L (8-16); Aspartate Amino Transferase 27 U/L (14-36); Bilirubin,Total 0.2 mg/dL (0.2-1.3); Blood Urea Nitrogen 15 mg/dL (7-17); Calcium 6.7 mg/dL (8.4-10.2); Carbon Dioxide 17 mmol/L (22-30); Chloride 102 mmol/L (98-107); Estimated CRCL calculation 74 ml/min; Estimated Glomerular Filt Rate 47; Glucose 121 mg/dL (65-110); Potassium 4.3 mmol/L (3.4-5.0); Sodium 125 mmol/L (137-145)
[2021-03-09] MEDS: DEXTROSE 5%/0.45% SOD CHL 1,000 ML 100 ML IV CONT (15:23)
--- NOTE | 2021-03-09 15:50 | PC.NURSE ---
Madina, from hospitalist office extension [phone] states that Ronald COFFMAN spoke with Dr. Marvin regarding pt. Dr. Marvin states he will be in sometime this evening to see pt.
--- NOTE | 2021-03-09 16:06 | PC.NURSE ---
1350 Removed 45cc of clear fluid from the bakri balloon.
--- NOTE | 2021-03-09 16:36 | PM.IMPN ---
Progress Note: A&P Assessment and Plan (1) hemorrhage: Code(s): O72.1 - Other immediate hemorrhage Status: Acute Assessment and Plan: # Acute postoperative anemia with loss of approximately 4 L blood during the surgery. Has been transfused 4 units of PRBC already. Will monitor H/H closely and transfuse as needed. #Improved to 11.2 (2) Hypotension: Code(s): I95.9 - Hypotension, unspecified Status: Acute Assessment and Plan: # hypotension postoperatively due to blood loss which has improved now with IV fluid resuscitation and blood transfusion (3) Low urine output: Code(s): R34 - Anuria and oliguria Status: Acute Assessment and Plan: # low urine output likely pre renal due to hypotension and blood loss postoperatively. The weighted output is already peaking up with aggressive IV fluid resuscitation that was performed postoperatively. I am hopeful that the renal function is preserved however she is at risk for developing ATN due to above and will need to closely monitor her renal function and urine output. We should maintain her blood pressure as normal as possible at this point and will avoid any nephrotoxic drugs like ibuprofen and ketorolac which I have held/stopped at this point. All the bleeding sources has been evaluated by the primary team with exploratory laparotomy and currently I do not see any further bleed at least in the uterine Bakri balloon that has been placed. (4) Hyperkalemia: Code(s): E87.5 - Hyperkalemia Status: Acute Assessment and Plan: # K had increased to 5.8 so IVF w/ KCL were discontinued and pt was put on low potassium diet # Improved to 4.3 (5) Hyponatremia: Code(s): E87.1 - Hypo-osmolality and hyponatremia Status: Acute Assessment and Plan: #significant drop to 125, spoke w/ nephrology Dr. Marvin who will evaluate the patient today. Appreciate additional recommendations. Secondary to all of the IVF? Additional Plan # elevated alkaline phosphatase unclear etiology? Cholestasis of continue to monitor now she is post caesarean # history of preeclampsia # delivery 03/08/2021 # DVT prophylaxis SCDs # full code status Thank you for consultation. We will follow along with you Subjective Date/time seen: 03/09/21 16:36 Interval history: Pt is a 36 yo female who was admitted yesterday for elective c section. Surgery was complicated with postoperative bleeding for which exploratory laparotomy was performed which revealed left broad ligament hematoma. Because of the hemorrhage she has also been transfused 4 unit of PRBC. Hospitalist team was consulted due to low urine output and possible kidney injury. Today patient states she is feeling okay. Pain is improved. [place] had just been emptied prior to me entering room. No cp or sob. Review of Systems Review of Systems: General: Denies fevers, chills Eyes: Denies vision changes or eye pain ENT: Denies nasal congestion or sore throat Respiratory: Denies cough or shortness of breath Cardiovascular: Denies chest pain, palpitations, or lower extremity edema Gastrointestinal: + abdominal pain, denies vomiting or diarrhea Genitourinary: +burkett Musculoskeletal: Denies back pain Neurological: Denies headache, paraesthesias, or motor weakness Integumentary: Denies rash or other skin lesions Psychiatric: Denies SI/HI Exam Narrative: GENERAL: The patient is well developed, not in acute distress HEENT: Nonicteric sclerae, PERRLA, EOMI. Oropharynx clear. Moist mucous membranes. Conjunctivae appear well perfused. CHEST: Chest wall is nontender. HEART: Regular rate and rhythm without murmur, rubs, or gallops LUNGS: Clear to auscultation bilaterally. no respiratory distress ABDOMEN: Soft, positive bowel sounds, mild tenderness lower abdomen, no organomegaly. SKIN: No rash, no excessive bruising
[2021-03-09] MEDS: DOCUSATE SODIUM 100 MG CAPSULE PO (16:56)
[2021-03-09] MEDS: SIMETHICONE 80 MG TAB.CHEW PO (16:56)
[2021-03-09] MEDS: ONDANSETRON HCL ODT 4 MG TABLET PO (16:56)
[2021-03-09] MEDS: FERROUS SULFATE 324 MG TABLET PO (16:58)
[2021-03-09] MEDS: FAMOTIDINE 20 MG TABLET PO (17:01)
--- NOTE | 2021-03-09 18:30 | PM.CNNEP ---
Assessment and Plan Assessment and plan (1) Abnormal results of kidney function studies: Code(s): R94.4 - Abnormal results of kidney function studies Status: Acute Assessment and Plan: the patient's creatinine is normally normal at 0.9 on admission. Her creatinine angelika to 1.3. She had substantial bleeding and also no tension. This led to oliguria. So it is not surprising that her creatinine angelika some. In fact it is a little surprising it did not rise more. Most likely her high creatinine is due to pre renal azotemia. Sometimes if the pre renal azotemia is severe it can lead to acute tubular necrosis. Her episode was somewhat brief lasting a few hours and so hopefully since she has healthy kidneys otherwise her renal function will bounce back fairly soon. Obstruction is a remote possibility. If her creatinine does not improve we can get an ultrasound tomorrow. Rhabdomyolysis is a possibility but I think unlikely. Will check a CPK just in case. renal syndromes I think her less likely as well since her platelet count is normal and her liver enzymes look good. Other causes includeglomerulonephritis, interstitial nephritis but these would be less likely. If her creatinine worsens tomorrow we will look more into these things. Will recheck of creatinine tonight and also tomorrow. Will also get urine electrolytes and CPK. Will continue IV fluids. (2) Hyponatremia: Code(s): E87.1 - Hypo-osmolality and hyponatremia Status: Acute Assessment and Plan: The patient has low sodium. Her sodium was normal on admission on the but has dropped continuously since then. This is most likely related to her hypotension and pre renal factors. Other causes include hypothyroidism, adrenal insufficiency, DIRECT MARKETING MANAGER issues, lung issues, and cancer. However I do not think any of these for play right now because her sodium Was fine in July and February of 2020.. (3) Hyperkalemia: Code(s): E87.5 - Hyperkalemia Status: Acute Assessment and Plan: The patient had hyperkalemia. This has resolved. (4) hemorrhage: Code(s): O72.1 - Other immediate hemorrhage Status: Acute Assessment and Plan: Patient had hemorrhage. Will recheck a CBC this evening. History of Present Illness Reason for Consult Consult date: 03/09/21 Chief Complaint Chief complaint: HIP Eval History of Present Illness Narrative: Malcolm is a very pleasant 36-year-old lady who has been admitted for delivery of her son. She had a . This was done yesterday evening. She had postoperative bleeding which was substantial so she had to have an exploratory laparotomy and they found left broad ligament hematoma. The bleeding has stopped after measures done in the OR. She lost 3881cc of blood. Her blood pressure did drop and so she received some IV fluids as well. Her blood pressure is back up to the 120s. She is lying in bed comfortably. She is uncomfortable in her belly as expected from all this. She had a little nausea this afternoon. She vomited once. She has no chest pain or shortness of breath. No skin rash. she has no prior history of kidney disease. No history of bladder infections kidney stones bloody urine foamy urine. She does not take nonsteroidal anti-inflammatory agents of course. The only thing she was on preop was multi vitamins and as needed Tylenol. Review of Systems Constitutional: Constitutional: Reports no additional constitutional complaints Eyes: Eyes: Reports no additional eye complaints ENT: Reports system reviewed and no additional complaints, except as documented Cardiovascular: Cardiovascular: Reports no additional cardiovascular complaints Respiratory: Respiratory: Reports no additional respiratory complaints Gastrointestinal: Gastrointestinal: Reports no additional gastrointestinal complai
--- NOTE | 2021-03-09 19:37 | PC.NURSE ---
Unable to collect BMP and CBC x 1 attempt. Phlebotomy notified and to collect. Urine specimen collected and sent.
[2021-03-09 19:50] LABS: Add Urine Microscopic? YES; Appearance Urine Clear (Clear); Bacteria Urine Trace /hpf; Bilirubin Urine Negative (Negative); Blood Urine 1+ (Negative); Color Urine Straw (Yellow); Glucose Urine UA Negative (Negative); Hyaline Casts Urine 20-29 /lpf; Ketones Urine Negative (Negative); Leukocyte Esterase Ur Negative LEU/UL (NEGATIVE); Mucus Urine Rare /lpf; Nitrate Urine Negative (Negative); Protein Urine Negative (Negative); RBC Urine 0-2 /hpf (0-2); Specific Grav Ur 1.008 (1.001-1.035); Squamous Epithelial Cell Urine Occasional /hpf (Few); Urobilinogen Urine Negative mg/dL (<2.0); WBC Urine 0-3 /hpf (0-3)
[2021-03-09 19:52] LABS: Creatinine Urine 48.3 mg/dL; Total Protein Urine Random 28 mg/dL; Ur Ttl Prot Creatinine Ratio 0.58 mg/mg (0-0.20)
[2021-03-09 20:01] LABS: Sodium Urine Random 20 meq/L
--- NOTE | 2021-03-09 20:20 | PC.NURSE ---
2000: Dr. Raines at bedside and dc'd Leighton crisostomo. IVF's dc'd and will susannah burkett in am. Phlebotomy attempted x3 to obtain labs and is calling another clinical engineering manager to attempt.
[2021-03-09 20:21] LABS: Basophils Percent Auto 0.2 % (0.2-1.2); Eosinophils Percent Auto 0.1 % (0-4.4); Hematocrit 30.1 % (37.0-47.0); Hemoglobin 10.4 g/dL (12.0-15.0); Immature Granulocyte Absolute 0.04 K/mm3 (0.00-0.031); Immature Granulocyte Percent A 0.3 % (0-0.5); Lymphocytes Absolute Auto 1.57 K/mm3 (0.9-3.2); Lymphocytes Percent Auto 11.8 % (18.3-44.2); Mean Corpuscular HGB Conc 34.6 g/dl (32-36); Mean Corpuscular Hemoglobin 27.6 pg (26-34); Mean Corpuscular Volume 79.8 fl (80-100); Mean Platelet Volume 10.9 fl (7.4-10.4); Monocytes Absolute Auto 0.8 K/mm3 (0.1-0.6); Neutrophils Absolute Auto 10.8 K/mm3 (1.3-6.7); Neutrophils Percent Auto 81.6 % (45.5-73.1); Platelet Count Result 175 k/mm3 (150-375); Red Blood Count 3.77 M/mm3 (4.2-5.4); Red Cell Distribution Width 15.5 % (11.5-14.5); White Blood Count 13.3 K/mm3 (4.5-10.0)
[2021-03-09 20:42] LABS: Anion Gap 5 mmol/L (8-16); Blood Urea Nitrogen 15 mg/dL (7-17); Calcium 6.5 mg/dL (8.4-10.2); Carbon Dioxide 17 mmol/L (22-30); Chloride 96 mmol/L (98-107); Creatine Kinase 744 U/L (30-135); Estimated CRCL calculation 74 ml/min; Estimated Glomerular Filt Rate 47; Glucose 109 mg/dL (65-110); Potassium 4.1 mmol/L (3.4-5.0); Sodium 118 mmol/L (137-145)
--- NOTE | 2021-03-09 21:39 | PM.EVENT ---
Event Note Event Note Event Note: Nurse called me repeat labs. Hemoglobin is relatively stable. Platelet count still okay. CPK is a little bit elevated. Will recheck this in the morning. Bicarbonate level is 17. This is probably from dilution. Anion gap is not elevated. Sodium level is down to 118. She was on hypotonic saline infusion. Will change this to normal saline +1 amp of bicarb. This will give her slightly more than isotonic saline. Also the bicarb will help because her serum bicarbonate level is low and also she has got the elevated CPK. Creatinine is stable at 1.3. Calcium level is a little bit low but so is albumin. Will give her calcium supplement and check an ionized calcium. Urine sodium is only 20 suggesting continued pre renal status.
[2021-03-10 00:40] VITALS: BP 136/70; PULSE 70; RESP 16; TEMP 36.8; O2SAT 99
[2021-03-10 03:45] VITALS: BP 133/78; PULSE 66; RESP 16; TEMP 36.7; O2SAT 100
[2021-03-10] MEDS: HYDROcodone/acetaminophen (*CRX) 5-325 MG TABLET 1 TAB PO ×4 (03:54→20:41)
[2021-03-10 04:06] LABS: Basophils Percent Auto 0.2 % (0.2-1.2); Eosinophils Percent Auto 0.1 % (0-4.4); Hematocrit 27.4 % (37.0-47.0); Hemoglobin 9.4 g/dL (12.0-15.0); Immature Granulocyte Absolute 0.07 K/mm3 (0.00-0.031); Immature Granulocyte Percent A 0.6 % (0-0.5); Lymphocytes Percent Auto 17.8 % (18.3-44.2); Mean Corpuscular HGB Conc 34.3 g/dl (32-36); Mean Corpuscular Hemoglobin 27.6 pg (26-34); Mean Corpuscular Volume 80.4 fl (80-100); Mean Platelet Volume 10.3 fl (7.4-10.4); Monocytes Absolute Auto 0.6 K/mm3 (0.1-0.6); Monocytes Percent Auto 5.2 % (2.6-8.5); Neutrophils Percent Auto 76.1 % (45.5-73.1); Platelet Count Result 166 k/mm3 (150-375); Red Blood Count 3.41 M/mm3 (4.2-5.4); Red Cell Distribution Width 15.8 % (11.5-14.5); White Blood Count 11.8 K/mm3 (4.5-10.0)
[2021-03-10 04:16] LABS: Sodium 122 mmol/L (137-145)
[2021-03-10 04:18] LABS: Alanine Aminotransferase 12 U/L (4-35); Albumin Level 2.1 g/dL (3.5-5.1); Alkaline Phosphatase 220 U/L (38-126); Anion Gap 5 mmol/L (8-16); Aspartate Amino Transferase 30 U/L (14-36); Bilirubin,Total 0.2 mg/dL (0.2-1.3); Blood Urea Nitrogen 15 mg/dL (7-17); Calcium 6.6 mg/dL (8.4-10.2); Carbon Dioxide 20 mmol/L (22-30); Chloride 98 mmol/L (98-107); Creatine Kinase 685 U/L (30-135); Estimated CRCL calculation 69 ml/min; Estimated Glomerular Filt Rate 43; Glucose 87 mg/dL (65-110); Potassium 3.9 mmol/L (3.4-5.0); Sodium 123 mmol/L (137-145)
[2021-03-10 04:19] LABS: Albumin Level 2.2 g/dL (3.5-5.1); Anion Gap 5 mmol/L (8-16); Blood Urea Nitrogen 15 mg/dL (7-17); Calcium 6.6 mg/dL (8.4-10.2); Carbon Dioxide 19 mmol/L (22-30); Chloride 98 mmol/L (98-107); Estimated CRCL calculation 69 ml/min; Estimated Glomerular Filt Rate 43; Glucose 86 mg/dL (65-110); Phosphorus 5.1 mg/dL (2.5-4.5); Potassium 3.8 mmol/L (3.4-5.0); Sodium 122 mmol/L (137-145)
--- NOTE | 2021-03-10 06:50 | PM.OBPNVD ---
OB - PN: Subj Subjective Date/time seen: 03/10/21 06:50 Patient walking in room and doing well this morning. No pain or discomfort. No significant vaginal bleeding. Tolerated regular diet and attempting to breastfeed. Have reviewed labs as well and discussed with patient. Currently Dr Marvin is managing her renal issues And his help of course is greatly appreciated. OB - PN: Obj Data Labs CBC & Chem 7: 03/10/21 03:58 03/10/21 03:58 Labs: Laboratory Results - last 24 hr 03/08/21 03/09/21 03/09/21 13:08 05:33 12:10 WBC 20.4 H 15.5 H RBC 4.50 4.01 L Hgb 12.3 D 11.2 L Hct 36.0 L 32.3 L MCV 80.0 80.5 MCH 27.3 27.9 MCHC 34.2 34.7 RDW 14.9 H 15.3 H Plt Count 198 176 MPV 11.3 H 11.2 H Immature Gran % (Auto) 0.4 0.4 Neut % (Auto) 84.6 H 78.3 H Lymph % (Auto) 9.[address] [facility] % (Auto) 5.4 6.5 Eos % (Auto) 0.0 0.0 Baso % (Auto) 0.1 L 0.2 Lymph # (Auto) 1.[address] [facility] # (Auto) 1.1 H 1.0 H Eos # (Auto) 0.0 0.0 Baso # (Auto) 0.0 0.0 Abs Immat Gran (auto) 0.08 H 0.06 H Absolute Neuts (auto) 17.2 H 12.1 H Absolute Nucleated RBC 0.0 0.0 Nucleated RBC % 0.0 0.1 Sodium Potassium Chloride Carbon Dioxide Anion Gap BUN Creatinine Estim Creat Clear Calc Estimated GFR Glucose Calcium Phosphorus Total Bilirubin AST ALT Alkaline Phosphatase Total Creatine Kinase Total Protein Albumin Urine Color Urine Appearance Urine pH Ur Specific Mcdermott Urine Protein Urine Glucose (UA) Urine Ketones Ur Blood (Man) Urine Nitrate Urine Bilirubin Urine Urobilinogen Ur Leukocyte Esterase Urine RBC Urine WBC Ur Squamous Epith Cells Urine Bacteria Hyaline Casts Urine Mucus U Random Total Protein Ur Random Sodium Urine Creatinine Protein/Creat Ratio 2 RPR Non-reactive 03/09/21 03/09/21 03/09/21 12:10 19:11 19:11 WBC 13.3 H RBC 3.77 L Hgb 10.4 L Hct 30.1 L MCV 79.8 L MCH 27.6 MCHC 34.6 RDW 15.5 H Plt Count 175 MPV 10.9 H Immature Gran % (Auto) 0.3 Neut % (Auto) 81.6 H Lymph % (Auto) 11.[address] [facility] % (Auto) 6.0 Eos % (Auto) 0.1 Baso % (Auto) 0.2 Lymph # (Auto) 1.57 [facility] # (Auto) 0.8 H Eos # (Auto) 0.0 Baso # (Auto) 0.0 Abs Immat Gran (auto) 0.04 H Absolute Neuts (auto) 10.8 H Absolute Nucleated RBC 0.0 Nucleated RBC % 0.0 Sodium 125 L 118 L* Potassium 4.3 4.1 Chloride 102 96 L Carbon Dioxide 17 L 17 L Anion Gap 6 L 5 L BUN 15 15 Creatinine 1.30 H 1.30 H Estim Creat Clear Calc 74 74 Estimated GFR 47 L 47 L Glucose 121 H 109 Calcium 6.7 L 6.5 L Phosphorus Total Bilirubin 0.2 AST 27 ALT 12 Alkaline Phosphatase 291 H Total Creatine Kinase 744 H Total Protein 4.0 L Albumin 2.1 L Urine Color Urine Appearance Urine pH Ur Specific Mcder[place]ott Urine Protein Urine Glucose (UA) Urine Ketones Ur Blood (Man) Urine Nitrate Urine Bilirubin Urine Urobilinogen Ur Leukocyte Esterase Urine RBC Urine WBC Ur Squamous Epith Cells Urine Bacteria Hyaline Casts Urine Mucus U Random Total Protein Ur Random Sodium Urine Creatinine Protein/Creat Ratio 2 RPR 03/09/21 03/09/21 03/10/21 19:12 19:12 03:58 WBC 11.8 H RBC 3.41 L Hgb 9.4 L Hct 27.4 L MCV 80.4 MCH 27.6 MCHC 34.3 RDW 15.8 H Plt Count 166 MPV 10.3 Immature Gran % (Auto) 0.6 H Neut % (Auto) 76.1 H Lymph % (Auto) 17.[address] [facility] % (Auto) 5.2 Eos % (Auto) 0.1 Baso % (Auto) 0.2 Lymph # (Auto) 2.10 [facility] # (Auto) 0.6 Eos # (Auto) 0.0 Baso # (Auto) 0.0 Abs Immat Gran (auto) 0.07 H Absolute Neuts (auto) 9.0 H Absolute Nucleated RBC 0.0 Nucleated RBC % 0.0 Sodium Potass
--- NOTE | 2021-03-10 07:46 | PM.PNNEP ---
Progress Note: A&P Assessment and Plan (1) Abnormal results of kidney function studies: Code(s): R94.4 - Abnormal results of kidney function studies Status: Acute Assessment and Plan: the patient's creatinine is normally normal at 0.9 on admission. Her creatinine angelika to 1.3. today this is 1.4. Urine electrolytes are pre renal. CK is mildly elevated but is on his way down blood pressure is doing better most likely this is pre renal azotemia and possibly mild intermediate syndrome, care home to ATN. Her anemia is vastly improved. She does have a mild decrease in her hemoglobin probably from hydration. She does not seem to be bleeding substantially. Her blood pressure is better. Hopefully with time renal function will improve. Because the creatinine did not dropped to normal today will check an ultrasound to be sure things are okay. Will continue IV fluids. (2) Hyponatremia: Code(s): E87.1 - Hypo-osmolality and hyponatremia Status: Acute Assessment and Plan: The patient has low sodium. Her sodium dropped to 118 last night later on. Now on fluid restriction and her fluids have been changed to slightly hypertonic fluid. Sodium level has come back up to 122. Will continue these fluids and see how she does (3) Hyperkalemia: Code(s): E87.5 - Hyperkalemia Status: Acute Assessment and Plan: The patient had hyperkalemia. This has resolved. (4) hemorrhage: Code(s): O72.1 - Other immediate hemorrhage Status: Acute Assessment and Plan: Patient had hemorrhage. follow CBC as her OBGYN. Subjective Date/time seen: 03/10/21 07:46 Interval history: patient is feeling better this morning. She slept well last night. She ate some. Minimal bloody drainage from her vagina. Review of Systems Cardiovascular: Cardiovascular: Reports no additional cardiovascular complaints Respiratory: Respiratory: Reports no additional respiratory complaints Gastrointestinal: Gastrointestinal: Reports no additional gastrointestinal complaints Genitourinary: Genitourinary: Reports no additional female genitourinary complaints Exam Narrative: WDWN in NAD skin no rash head ncat lungs clear cor reg no rub abd BS+ minimally tender and soft ext Trace edema. Objective Data Vital Signs Vital Signs: Vital Signs - 24 hr 03/09/21 08:25 03/09/21 11:30 03/09/21 12:10 Temperature 36.3 C L 36.6 C 36.6 C Pulse Rate 83 86 86 Respiratory Rate 16 16 16 Blood Pressure 125/76 126/81 126/81 Pulse Oximetry 99 97 97 03/09/21 16:00 03/09/21 19:00 03/10/21 00:40 Temperature 36.4 C 36.6 C 36.8 C Pulse Rate 82 74 70 Respiratory Rate 16 16 16 Blood Pressure 126/82 143/89 H 136/70 Pulse Oximetry 98 99 03/10/21 03:45 Temperature 36.7 C Pulse Rate 66 Respiratory Rate 16 Blood Pressure 133/78 Pulse Oximetry 100 Intake/Output Intake/Output: Intake & Output 03/07/21 03/08/21 03/09/21 03/10/21 23:59 23:59 23:59 23:59 Intake Total 900 5481 50 Output Total 1796 1153 1450 Balance -896 4328 -1400 Meds/Results Medications: Active Medications Generic Name Dose Route Start Last Admin Trade Name Freq PRN Reason Stop Dose Admin Acetaminophen 650 mg 03/09/21 00:36 03/09/21 17:01 Acetaminophen 325 Mg Tablet PO 650 mg Q6H PRN Administration Mild Pain (1-3) Hydrocodone Bitart/Acetaminophen 1 tab 03/09/21 00:36 03/10/21 03:54 Hydrocodone/Acetaminophen (*Crx) 5-325 Mg Tablet PO 1 tab Q3H PRN Administration Moderate Pain (4-6) Hydrocodone Bitart/Acetaminophen 1 tab 03/09/21 00:36 Hydrocodone/Acetaminophen (*Crx) 10-325 Mg Tablet PO Q3H PRN Pain Rated 7-10 Bisacodyl 10 mg 03/09/21 00:36 Bisacodyl 10 Mg Suppository RECTAL ONCE PRN Constipation Calcium Citrate 1 tablet 03/09/21 21:45 03/10/21 03:55 Calc
[2021-03-10 08:10] VITALS: BP 133/79; PULSE 76; RESP 16; TEMP 36.4; O2SAT 100
[2021-03-10] MEDS: MULTIVIT/MIN/PREN/FOL AC/IRON TABLET 1 TAB PO (09:17)
[2021-03-10] MEDS: FAMOTIDINE 20 MG TABLET PO ×2 (09:17→17:34)
[2021-03-10] MEDS: DOCUSATE SODIUM 100 MG CAPSULE PO ×2 (09:17→17:34)
[2021-03-10] MEDS: TETANUS,DIPHTHERIA,AC PERTUSSIS ADULT (0.5 ML) BOOSTRIX IM (09:18)
[2021-03-10] MEDS: POLYSACCHARIDE IRON COMPLEX 150 MG CAPSULE PO (09:18)
--- NOTE | 2021-03-10 11:59 | PC.NURSE ---
To Ultrasound per wheelchair.
[2021-03-10 13:00] VITALS: BP 142/77; PULSE 88; RESP 20; TEMP 36.3; O2SAT 99
--- NOTE | 2021-03-10 13:00 | PC.NURSE ---
Consult with pt., mother wishes to initiate pumping due to and ineffective feeding. Breast pump provided due to mother's wishes. Instructions given on breast pump care and usage, pumping schedule, nipple care, and collection and storage of breast milk. Encouraged [id number], breast massage and manual expression to stimulate supply. Assessed patient for correct flange size, placement and draw. Patient verbalizes and demonstrates understanding of instructions. Discussed colostrum vs milk supply and mother may not see more than a few drops the first few days, milk should transition in by day 3 and she may see more volume pumped per session.
[2021-03-10 13:33] LABS: Sodium 124 mmol/L (137-145)
[2021-03-10 15:00] VITALS: BP 130/74; PULSE 80; RESP 18; TEMP 36.7
[2021-03-10 17:17] LABS: Anion Gap 4 mmol/L (8-16); Blood Urea Nitrogen 17 mg/dL (7-17); Calcium 7.2 mg/dL (8.4-10.2); Carbon Dioxide 21 mmol/L (22-30); Chloride 101 mmol/L (98-107); Estimated CRCL calculation 65 ml/min; Estimated Glomerular Filt Rate 40; Glucose 93 mg/dL (65-110); Potassium 4.1 mmol/L (3.4-5.0); Sodium 126 mmol/L (137-145)
--- NOTE | 2021-03-10 17:39 | PM.IMPN ---
Progress Note: A&P Assessment and Plan (1) hemorrhage: Code(s): O72.1 - Other immediate hemorrhage Status: Acute Assessment and Plan: # Acute postoperative anemia with loss of approximately 4 L blood during the surgery. Has been transfused 4 units of PRBC already. Will monitor H/H closely and transfuse as needed. #Improved, seems to be stable at this time (2) Hypotension: Code(s): I95.9 - Hypotension, unspecified Status: Acute Assessment and Plan: # hypotension postoperatively due to blood loss which has improved now with IV fluid resuscitation and blood transfusion (3) Low urine output: Code(s): R34 - Anuria and oliguria Status: Acute Assessment and Plan: # low urine output likely pre renal due to hypotension and blood loss postoperatively. The weighted output is already peaking up with aggressive IV fluid resuscitation that was performed postoperatively. I am hopeful that the renal function is preserved however she is at risk for developing ATN due to above and will need to closely monitor her renal function and urine output. We should maintain her blood pressure as normal as possible at this point and will avoid any nephrotoxic drugs like ibuprofen and ketorolac which I have held/stopped at this point. All the bleeding sources has been evaluated by the primary team with exploratory laparotomy and currently I do not see any further bleed at least in the uterine Bakri balloon that has been placed. #nephrology has been consulted, appreciate their recommendations (4) Hyperkalemia: Code(s): E87.5 - Hyperkalemia Status: Acute Assessment and Plan: # K had increased to 5.8 so IVF w/ KCL were discontinued and pt was put on low potassium diet # Improved to 3.8, will switch back to regular diet (5) Hyponatremia: Code(s): E87.1 - Hypo-osmolality and hyponatremia Status: Acute Assessment and Plan: #significant drop to 118. seen by nephrology who changed fluids to NS +1 amp of bicarb. Seems to be improving slowly. Up to 122 this morning. #continue monitoring closely, appreciate nephrology recommendations Additional Plan # elevated alkaline phosphatase unclear etiology? Cholestasis of continue to monitor now she is post caesarean # history of preeclampsia # delivery 03/08/2021 # DVT prophylaxis SCDs # full code status Thank you for consultation. We will follow along with you Subjective Date/time seen: 03/10/21 17:39 Interval history: Pt is a 36 yo female who was admitted for elective c section. Surgery was complicated with postoperative bleeding for which exploratory laparotomy was performed which revealed left broad ligament hematoma. Because of the hemorrhage she has also been transfused 4 unit of PRBC. Hospitalist team was consulted due to low urine output and possible kidney injury. She is feeling much better today. Still having some abdominal pain. Minimal vaginal bleeding. Review of Systems Review of Systems: General: Denies fevers, chills Eyes: Denies vision changes or eye pain ENT: Denies nasal congestion or sore throat Respiratory: Denies cough or shortness of breath Cardiovascular: Denies chest pain, palpitations, or lower extremity edema Gastrointestinal: + abdominal pain, denies vomiting or diarrhea Genitourinary: +burkett Musculoskeletal: Denies back pain Neurological: Denies headache, paraesthesias, or motor weakness Integumentary: Denies rash or other skin lesions Exam Narrative: GENERAL: The patient is well developed, not in acute distress HEENT: Nonicteric sclerae, PERRLA, EOMI. Oropharynx clear. Moist mucous membranes. Conjunctivae appear well perfused. CHEST: Chest wall is nontender. HEART: Regular rate and rhythm without murmur, rubs, or gallops LUNGS: Clear to auscultation bilaterally. no respiratory distress ABDOMEN: Soft, posit
[2021-03-10] MEDS: POLYSACCHARIDE IRON COMPLEX 150 MG CAPSULE (18:31)
[2021-03-10 20:40] VITALS: BP 124/66; PULSE 87; RESP 16; TEMP 36.1; O2SAT 100
[2021-03-10] MEDS: SERTRALINE HCL 25 MG TABLET PO (20:41)
[2021-03-11] VITALS (7 sets, daily range): BP systolic 136–150; BP diastolic 70–86; PULSE 67–80; RESP 16–18; TEMP 36.2–36.7; O2SAT 98–100
[2021-03-11] MEDS: HYDROcodone/acetaminophen (*CRX) 10-325 MG TABLET 1 TAB PO (00:02)
[2021-03-11] MEDS: HYDROcodone/acetaminophen (*CRX) 5-325 MG TABLET 1 TAB PO ×4 (04:25→21:18)
--- NOTE | 2021-03-11 07:42 | PM.OBPNVD ---
OB - PN: Subj Subjective Date/time seen: 03/11/21 07:42 Interval history: Pt is a 36 yo female who was admitted for elective c section. Surgery was complicated with postoperative bleeding for which exploratory laparotomy was performed which revealed left broad ligament hematoma. Because of the hemorrhage she has also been transfused 4 unit of PRBC. Hospitalist team was consulted due to low urine output and possible kidney injury. She is feeling much better today. Still having some abdominal pain. Minimal vaginal bleeding. OB - PN: Obj Data Labs CBC & Chem 7: 03/11/21 07:56 03/11/21 07:56 Labs: Laboratory Results - last 24 hr 03/10/21 03/10/21 12:53 16:49 Sodium 124 L 126 L Potassium 4.1 Chloride 101 Carbon Dioxide 21 L Anion Gap 4 L BUN 17 Creatinine 1.50 H Estim Creat Clear Calc 65 Estimated GFR 40 L Glucose 93 Calcium 7.2 L Imaging Radiologist's impression: Impressions Pelvis Ultrasound 03/10/21 12:39 IMPRESSION: 1. Enlarged uterus. Trace fluid in the endometrium which is normal thickness. 2: Trace free fluid in the pelvis, likely physiologic. Renal Ultrasound 03/10/21 12:45 Impression: 1: Unremarkable renal ultrasound. No stones, masses or hydronephrosis. OB - PN A/P Time Spent With Patient Time: Total time spent is greater than 50% in coordination of care (as documented) at patient's floor/unit and/or counseling patient:
[2021-03-11 08:12] LABS: Hematocrit 25.3 % (37.0-47.0); Hemoglobin 8.5 g/dL (12.0-15.0)
[2021-03-11 08:38] LABS: Albumin Level 2.5 g/dL (3.5-5.1); Anion Gap 5 mmol/L (8-16); Blood Urea Nitrogen 18 mg/dL (7-17); Calcium 7.7 mg/dL (8.4-10.2); Carbon Dioxide 23 mmol/L (22-30); Chloride 107 mmol/L (98-107); Estimated CRCL calculation 69 ml/min; Estimated Glomerular Filt Rate 43; Glucose 76 mg/dL (65-110); Phosphorus 6.1 mg/dL (2.5-4.5); Potassium 4.1 mmol/L (3.4-5.0); Sodium 135 mmol/L (137-145)
[2021-03-11] MEDS: FERROUS SULFATE 324 MG TABLET PO (10:46)
[2021-03-11] MEDS: DOCUSATE SODIUM 100 MG CAPSULE PO ×2 (10:47→16:39)
[2021-03-11] MEDS: FAMOTIDINE 20 MG TABLET PO ×2 (10:47→16:39)
[2021-03-11] MEDS: MULTIVIT/MIN/PREN/FOL AC/IRON TABLET 1 TAB PO (10:47)
[2021-03-11] MEDS: DEXTROSE 5% 1,000 ML 1,000 ML 360 ML IV CONT ×2 (13:09→20:08)
--- NOTE | 2021-03-11 13:44 | PM.OBPNVD ---
OB - PN: Subj Subjective Date/time seen: 03/11/21 13:44 Interval history: Pt is a 36 yo female who was admitted for elective c section. Surgery was complicated with postoperative bleeding for which exploratory laparotomy was performed which revealed left broad ligament hematoma. Because of the hemorrhage she has also been transfused 4 unit of PRBC. Hospitalist team was consulted due to low urine output and possible kidney injury. She is feeling much better today. Still having some abdominal pain. Minimal vaginal bleeding. OB - PN: Obj Data Labs CBC & Chem 7: 03/11/21 07:56 03/11/21 07:56 Labs: Laboratory Results - last 24 hr 03/10/21 03/11/21 03/11/21 16:49 07:56 07:56 Hgb 8.5 L Hct 25.3 L Sodium 126 L 135 L Potassium 4.1 4.1 Chloride 101 107 Carbon Dioxide 21 L 23 Anion Gap 4 L 5 L BUN 17 18 H Creatinine 1.50 H 1.40 H Estim Creat Clear Calc 65 69 Estimated GFR 40 L 43 L Glucose 93 76 Calcium 7.2 L 7.7 L Phosphorus 6.1 H Albumin 2.5 L OB - PN A/P Assessment and Plan (1) care following delivery: Code(s): Z39.2 - Encounter for routine follow-up Status: Acute Assessment and Plan: Diet/ambulation as expected. Doing well from a strictly operative standpoint. (2) hemorrhage: Code(s): O72.1 - Other immediate hemorrhage Status: Acute Assessment and Plan: Labs normalizing from this perspective as well. US with no sig collection of fluid so no sig ongoing issues bleeding-altamirano. Clinically stable as well. Renal labs stable for now, will defer to Dr Marvin. (3) Mild pre-eclampsia in third trimester: Code(s): O14.03 - Mild to moderate pre-eclampsia, third trimester Status: Acute Assessment and Plan: BP trending up as rest of clinical situation stabilizes. Will hold on antihypertensives at this point but may start depending on how BP looks once discharged, if not started prior to that. Time Spent With Patient Time: Total time spent is greater than 50% in coordination of care (as documented) at patient's floor/unit and/or counseling patient:
--- NOTE | 2021-03-11 14:51 | PM.IMPN ---
Progress Note: A&P Assessment and Plan (1) hemorrhage: Code(s): O72.1 - Other immediate hemorrhage Status: Acute Assessment and Plan: # Acute postoperative anemia with loss of approximately 4 L blood during the surgery. Has been transfused 4 units of PRBC already. Will monitor H/H closely and transfuse as needed. #Improved, seems to be stable at this time (2) Hypotension: Code(s): I95.9 - Hypotension, unspecified Status: Acute Assessment and Plan: # hypotension postoperatively due to blood loss which has improved now with IV fluid resuscitation and blood transfusion (3) Low urine output: Code(s): R34 - Anuria and oliguria Status: Acute Assessment and Plan: # low urine output likely pre renal due to hypotension and blood loss postoperatively. The weighted output is already peaking up with aggressive IV fluid resuscitation that was performed postoperatively. I am hopeful that the renal function is preserved however she is at risk for developing ATN due to above and will need to closely monitor her renal function and urine output. We should maintain her blood pressure as normal as possible at this point and will avoid any nephrotoxic drugs like ibuprofen and ketorolac which I have held/stopped at this point. All the bleeding sources has been evaluated by the primary team with exploratory laparotomy and currently I do not see any further bleed at least in the uterine Bakri balloon that has been placed. #nephrology has been consulted, appreciate their recommendations #burkett removed today, good output so far, will continue to monitor (4) Hyperkalemia: Code(s): E87.5 - Hyperkalemia Status: Acute Assessment and Plan: # K had increased to 5.8 so IVF w/ KCL were discontinued and pt was put on low potassium diet # Resolved, will switch back to regular diet (5) Hyponatremia: Code(s): E87.1 - Hypo-osmolality and hyponatremia Status: Acute Assessment and Plan: #significant drop to 118. seen by nephrology who changed fluids to NS +1 amp of bicarb. Seems to be improving slowly. Up to 135 this morning. #continue monitoring closely, appreciate nephrology recommendations Additional Plan # elevated alkaline phosphatase unclear etiology? Cholestasis of continue to monitor now she is post caesarean # history of preeclampsia # delivery 03/08/2021 # DVT prophylaxis SCDs # full code status Thank you for consultation. We will follow along with you Subjective Date/time seen: 03/11/21 14:51 Interval history: Pt is a 36 yo female who was admitted for elective c section. Surgery was complicated with postoperative bleeding for which exploratory laparotomy was performed which revealed left broad ligament hematoma. Because of the hemorrhage she has also been transfused 4 unit of PRBC. Hospitalist team was consulted due to low urine output and possible kidney injury. She is feeling much better today. Still taking the norco for her abdominal pain. No N/V/F. Minimal vaginal bleeding. Burkett was removed and she is urinating well without difficulty. Review of Systems Review of Systems: General: Denies fevers, chills Eyes: Denies vision changes or eye pain ENT: Denies nasal congestion or sore throat Respiratory: Denies cough or shortness of breath Cardiovascular: Denies chest pain, palpitations, or lower extremity edema Gastrointestinal: + abdominal pain, denies vomiting or diarrhea Genitourinary: Denies dysuria or urinary retention Musculoskeletal: Denies back pain Neurological: Denies headache, paraesthesias, or motor weakness Integumentary: Denies rash or other skin lesions Exam Narrative: GENERAL: The patient is well developed, not in acute distress HEENT: Nonicteric sclerae, PERRLA, EOMI. Oropharynx clear. Moist mucous membranes. Conjunctivae appear well perfused. CH[facility]
--- NOTE | 2021-03-11 18:00 | PC.NURSE ---
At 1415, IV restart per IV therapy RN was started in the rt. forearm and not the left.
[2021-03-11 18:12] LABS: Sodium 136 mmol/L (137-145)
[2021-03-11] MEDS: DESMOPRESSIN ACETATE 4 MCG/ML AMP 2 MCG IV PUSH (20:03)
[2021-03-11] MEDS: SERTRALINE HCL 25 MG TABLET PO (21:18)
[2021-03-12 00:39] LABS: Sodium 131 mmol/L (137-145)
[2021-03-12 01:10] VITALS: BP 140/92; PULSE 64; O2SAT 99
[2021-03-12] MEDS: HYDROcodone/acetaminophen (*CRX) 5-325 MG TABLET 1 TAB PO ×3 (01:11→16:25)
[2021-03-12 06:09] LABS: Basophils Percent Auto 0.2 % (0.2-1.2); Eosinophils Absolute Auto 0.1 K/mm3 (0-0.3); Eosinophils Percent Auto 1.1 % (0-4.4); Hematocrit 21.7 % (37.0-47.0); Immature Granulocyte Absolute 0.05 K/mm3 (0.00-0.031); Immature Granulocyte Percent A 0.6 % (0-0.5); Lymphocytes Absolute Auto 1.48 K/mm3 (0.9-3.2); Lymphocytes Percent Auto 17.9 % (18.3-44.2); Mean Corpuscular HGB Conc 32.3 g/dl (32-36); Mean Corpuscular Hemoglobin 26.6 pg (26-34); Mean Corpuscular Volume 82.5 fl (80-100); Mean Platelet Volume 10.1 fl (7.4-10.4); Monocytes Absolute Auto 0.4 K/mm3 (0.1-0.6); Monocytes Percent Auto 4.5 % (2.6-8.5); Neutrophils Absolute Auto 6.3 K/mm3 (1.3-6.7); Neutrophils Percent Auto 75.7 % (45.5-73.1); Platelet Count Result 186 k/mm3 (150-375); Red Blood Count 2.63 M/mm3 (4.2-5.4); Red Cell Distribution Width 16.5 % (11.5-14.5); White Blood Count 8.3 K/mm3 (4.5-10.0)
[2021-03-12 06:11] LABS: Alanine Aminotransferase 18 U/L (4-35); Albumin Level 2.3 g/dL (3.5-5.1); Alkaline Phosphatase 169 U/L (38-126); Anion Gap 5 mmol/L (8-16); Aspartate Amino Transferase 42 U/L (14-36); Bilirubin,Total 0.4 mg/dL (0.2-1.3); Blood Urea Nitrogen 13 mg/dL (7-17); Calcium 7.6 mg/dL (8.4-10.2); Carbon Dioxide 23 mmol/L (22-30); Chloride 107 mmol/L (98-107); Estimated CRCL calculation 80 ml/min; Estimated Glomerular Filt Rate 51; Glucose 83 mg/dL (65-110); Potassium 4.1 mmol/L (3.4-5.0); Sodium 135 mmol/L (137-145)
[2021-03-12] MEDS: DOCUSATE SODIUM 100 MG CAPSULE PO ×2 (07:23→16:25)
[2021-03-12] MEDS: FAMOTIDINE 20 MG TABLET PO ×2 (07:24→16:25)
[2021-03-12] MEDS: MULTIVIT/MIN/PREN/FOL AC/IRON TABLET 1 TAB PO (07:24)
[2021-03-12 07:53] VITALS: BP 148/86; PULSE 68; RESP 18; TEMP 36.9; O2SAT 100
[2021-03-12] MEDS: FERROUS SULFATE 324 MG TABLET PO ×2 (08:00→16:26)
--- NOTE | 2021-03-12 08:43 | PM.OBPNVD ---
OB - PN: Subj Subjective Date/time seen: 03/12/21 08:43 Patient is feeling well tolerating regular diet and ambulating without any symptoms. Still sore from a surgical standpoint but pain is well controlled with current medications. No significant vaginal bleeding. No other symptoms of headaches blurred vision chest pain. She strongly desires to be discharged today and at this point this seems reasonable as labs are trending appropriately from renal standpoint. Blood pressures are not any treatable range at this point and her hemoglobin is stabilizing in the area 1 would expect with all of the issues that she has had. See plan below for follow-up. Interval history: Pt is a 36 yo female who was admitted for elective c section. Surgery was complicated with postoperative bleeding for which exploratory laparotomy was performed which revealed left broad ligament hematoma. Because of the hemorrhage she has also been transfused 4 unit of PRBC. Hospitalist team was consulted due to low urine output and possible kidney injury. She is feeling much better today. Still taking the norco for her abdominal pain. No N/V/F. Minimal vaginal bleeding. Bazan was removed and she is urinating well without difficulty. OB - PN: Obj Data Labs CBC & Chem 7: 03/12/21 05:50 03/12/21 05:49 Labs: Laboratory Results - last 24 hr 03/11/21 03/11/21 03/12/21 17:55 23:48 05:49 WBC RBC Hgb Hct MCV MCH MCHC RDW Plt Count MPV Immature Gran % (Auto) Neut % (Auto) Lymph % (Auto) [place] % (Auto) Eos % (Auto) Baso % (Auto) Lymph # (Auto) [place] # (Auto) Eos # (Auto) Baso # (Auto) Abs Immat Gran (auto) Absolute Neuts (auto) Absolute Nucleated RBC Nucleated RBC % Sodium 136 L 131 L 135 L Potassium 4.1 Chloride 107 Carbon Dioxide 23 Anion Gap 5 L BUN 13 D Creatinine 1.20 H Estim Creat Clear Calc 80 Estimated GFR 51 L Glucose 83 Calcium 7.6 L Total Bilirubin 0.4 AST 42 H ALT 18 Alkaline Phosphatase 169 H Total Protein 5.0 L Albumin 2.3 L 03/12/21 03/12/21 05:50 05:50 WBC 8.3 RBC 2.63 L Hgb 7.0 L Cancelled Hct 21.7 L Cancelled MCV 82.5 MCH 26.6 MCHC 32.3 RDW 16.5 H Plt Count 186 MPV 10.1 Immature Gran % (Auto) 0.6 H Neut % (Auto) 75.7 H Lymph % (Auto) 17.9 L [place] % (Auto) 4.5 Eos % (Auto) 1.1 Baso % (Auto) 0.2 Lymph # (Auto) 1.48 [place] # (Auto) 0.4 Eos # (Auto) 0.1 Baso # (Auto) 0.0 Abs Immat Gran (auto) 0.05 H Absolute Neuts (auto) 6.3 Absolute Nucleated RBC 0.0 Nucleated RBC % 0.0 Sodium Potassium Chloride Carbon Dioxide Anion Gap BUN Creatinine Estim Creat Clear Calc Estimated GFR Glucose Calcium Total Bilirubin AST ALT Alkaline Phosphatase Total Protein Albumin OB - PN A/P Assessment and Plan (1) care following delivery: Code(s): Z39.2 - Encounter for routine follow-up Status: Acute Assessment and Plan: from simply a surgical standpoint patient is doing well ambulation voiding good bowel function diet tolerated. Pain is appropriate. (2) hemorrhage: Code(s): O72.1 - Other immediate hemorrhage Status: Acute Assessment and Plan: No significant bleeding vaginally and she is asymptomatic from her anemia. Will continue iron and vitamins and recheck levels after discharge. (3) Mild pre-eclampsia in third trimester: Code(s): O14.03 - Mild to moderate pre-eclampsia, third trimester Status: Acute Assessment and Plan: Blood pressures are [id number] elevated though not a treatable range at this point. She is entirely asymptomatic as well. (4) Abnormal results of kidney function studies: Code(s): R94.4 - Abnormal results of kidney function studi
--- NOTE | 2021-03-12 08:49 | PM.OBDSVD ---
DS: Admitting Diagnosis Discharge Date 03/12/2021 Admitting Diagnosis /hypertension DS: Discharge Diagnosis Discharge Diagnosis (1) care following delivery: Code(s): Z39.2 - Encounter for routine follow-up Status: Acute OB - DS: Summary OB Procedures : None OB Procedures Intrapartum: and Uterine exploration OB Procedures: : Transfusion Peripartum Data Procedures: Procedures Operation Date: 03/08/21 16:00 Actual Procedure Side Surgeon s Exploratory Laparotomy Anthony Raines MD p Section Anthony Raines MD Time Spent with Patient Time attestation: Total time spent providing and/or coordinating discharge services: DS: Data Data Completed and Pending Pending studies at discharge: Pending at discharge 03/08/21 16:58 Surgical [PTH] Routine Labs on day of discharge: Labs from last 24 hours 03/12/21 03/12/21 03/12/21 05:50 05:50 05:49 WBC 8.3 RBC 2.63 L Hgb Cancelled 7.0 L Hct Cancelled 21.7 L MCV 82.5 MCH 26.6 MCHC 32.3 RDW 16.5 H Plt Count 186 MPV 10.1 Immature Gran % (Auto) 0.6 H Neut % (Auto) 75.7 H Lymph % (Auto) 17.9 L [place] % (Auto) 4.5 Eos % (Auto) 1.1 Baso % (Auto) 0.2 Lymph # (Auto) 1.48 [place] # (Auto) 0.4 Eos # (Auto) 0.1 Baso # (Auto) 0.0 Abs Immat Gran (auto) 0.05 H Absolute Neuts (auto) 6.3 Absolute Nucleated RBC 0.0 Nucleated RBC % 0.0 Sodium 135 L Potassium 4.1 Chloride 107 Carbon Dioxide 23 Anion Gap 5 L BUN 13 D Creatinine 1.20 H Estim Creat Clear Calc 80 Estimated GFR 51 L Glucose 83 Calcium 7.6 L Total Bilirubin 0.4 AST 42 H ALT 18 Alkaline Phosphatase 169 H Total Protein 5.0 L Albumin 2.3 L 03/11/21 03/11/21 23:48 17:55 WBC RBC Hgb Hct MCV MCH MCHC RDW Plt Count MPV Immature Gran % (Auto) Neut % (Auto) Lymph % (Auto) [place] % (Auto) Eos % (Auto) Baso % (Auto) Lymph # (Auto) [place] # (Auto) Eos # (Auto) Baso # (Auto) Abs Immat Gran (auto) Absolute Neuts (auto) Absolute Nucleated RBC Nucleated RBC % Sodium 131 L 136 L Potassium Chloride Carbon Dioxide Anion Gap BUN Creatinine Estim Creat Clear Calc Estimated GFR Glucose Calcium Total Bilirubin AST ALT Alkaline Phosphatase Total Protein Albumin Discharge Plan Discharge Consulting providers: Dee Eckert ; Micah Faria ; Rubén Marvin Discharging Clinician: Anthony Raines Anticipated Discharge Date/Time: 03/12/21 08:49 Patient Disposition: Home, Self-Care Activity: may shower, no straining and no driving Diet: as tolerated Discharge Instructions: return to office sunday for dressing/staple removal. also be sure to send home with staple removal kit. Patient Instructions: Antibiotic Form Stand Alone Forms: General Discharge Information Follow-up/Referrals: Anthony Raines MD [Physician] - 3 Weeks (above for routine f/u, will see 48h for BP check) Discharge Medications: New hydrocodone-acetaminophen 5-325 mg Tablet 1 tablet PO Q3H Qty: 20 RF: 0 ibuprofen 600 mg Tablet 600 mg PO Q6H PRN (Reason: Cramping) Qty: 30 RF: 0 Continued ondansetron HCl [Zofran] 4 mg tablet 4 mg PO Q6H PRN (Reason: nausea and vomiting) Qty: 10 RF: 0 famotidine [Pepcid] 20 mg tablet 20 mg PO BID Qty: 30 RF: 0 sertraline [Zoloft] 25 mg Tablet 25 mg PO DAILY RF: 0 ferrous sulfate 325 mg (65 mg iron) Tablet,Delayed Release (Dr/Ec) 325 mg PO DAILY RF: 0 PNV [id number]-ferrous fumarate-FA [] 28 mg iron- 800 mcg Tablet 1 tablet PO DAILY RF: 0 Date of admission: 03/08/21 10:32 Primary Care Provider: Remington Finley Admitting Provider: Anthony Raines Attending physician on admission: Anthony Raines
[2021-03-12 13:00] VITALS: BP 142/80; PULSE 84; RESP 16; TEMP 36.9; O2SAT 100
--- NOTE | 2021-03-12 15:31 | PC.NURSE ---
Self care and infant care discharge instructions given including follow up visit date and time. Pt. verbalized understanding. Instructed pt. to call Dr. Raines or exchange is starts to experience any symptoms such as dizziness, headache, blurred vision, high stomach pain, excessive swelling of face or hands. Instructed to continue on iron supplement along with stool softener per dr. howard. Also instructed pt. to come to hospital on Sunday, Mar.14 at 8am. for lab draw at front of hospital before coming for follow up visit. Order sheet given to pt. to take to lab on that day. Pt. states that she will be there for lab draw. at side and very attentive. Pt. states that she has plenty of help once at home. No complaints voiced at this time.
--- NOTE | 2021-03-12 15:34 | PM.IMPN ---
Progress Note: A&P Assessment and Plan (1) hemorrhage: Code(s): O72.1 - Other immediate hemorrhage Status: Acute Assessment and Plan: #Acute postoperative anemia with loss of approximately 4 L blood during the surgery. Has been transfused 4 units of PRBC already. #Monitored H/H closely, she is 7.0 today #Discussed w/ Dr. Raines who states hgb is well within range he would expect considering her circumstances. He is going to have her come back in 48 hours for repeat blood work. Her pelvic US did not show any retained products and she is having only minimal vaginal bleeding. Discussed with her importance of taking her iron when she is discharged. (2) Hypotension: Code(s): I95.9 - Hypotension, unspecified Status: Acute Assessment and Plan: #Hypotension postoperatively due to blood loss which has improved now with IV fluid resuscitation and blood transfusion #Has remained stable (3) Low urine output: Code(s): R34 - Anuria and oliguria Status: Acute Assessment and Plan: # low urine output likely pre renal due to hypotension and blood loss postoperatively #nephrotoxic drugs like ibuprofen and ketorolac were held/stopped #nephrology was consulted, appreciate their recommendations #burkett was removed yesterday, has had good urine output since that time #rental studies have significantly improved and are trending back to normal (4) Hyperkalemia: Code(s): E87.5 - Hyperkalemia Status: Acute Assessment and Plan: # K had increased to 5.8 so IVF w/ KCL were discontinued and pt was put on low potassium diet # Resolved, will switch back to regular diet (5) Hyponatremia: Code(s): E87.1 - Hypo-osmolality and hyponatremia Status: Acute Assessment and Plan: #significant drop to 118. seen by nephrology who changed fluids to NS +1 amp of bicarb. Has been improving slowly and remains stable. #managed with help of nephrology, has nearly resolved at this time, appreciate their consult Additional Plan # DVT prophylaxis SCDs # full code status Thank you for consultation. Subjective Date/time seen: 03/12/21 15:34 Interval history: Pt is a 36 yo female who was admitted for elective c section. Surgery was complicated with postoperative bleeding for which exploratory laparotomy was performed which revealed left broad ligament hematoma. Because of the hemorrhage she has also been transfused 4 unit of PRBC. Hospitalist team was consulted due to low urine output and possible kidney injury. She is feeling much better today. She denies abdominal pain. Minimal vaginal bleeding. She is urinating well. Did sit up in bed early this morning and got dizzy/light headed and had one episode of emesis. She took a nap and is now feeling much better. No sob, palpitations. She is hoping to be discharged today. Review of Systems Review of Systems: General: Denies fevers, chills Eyes: Denies vision changes or eye pain ENT: Denies nasal congestion or sore throat Respiratory: Denies cough or shortness of breath Cardiovascular: Denies chest pain, palpitations, or lower extremity edema Gastrointestinal: denies abdominal pain, + vomiting Genitourinary: Denies dysuria or urinary retention Musculoskeletal: Denies back pain Neurological: Denies headache, paraesthesias, or motor weakness, +dizziness Integumentary: Denies rash or other skin lesions Exam Narrative: GENERAL: The patient is well developed, not in acute distress HEENT: Nonicteric sclerae, PERRLA, EOMI. Oropharynx clear. Moist mucous membranes. Conjunctivae appear well perfused. CHEST: Chest wall is nontender. HEART: Regular rate and rhythm without murmur, rubs, or gallops LUNGS: Clear to auscultation bilaterally. no respiratory distress ABDOMEN: Soft, positive bowel sounds, mild tenderness lower abdomen, no organomegaly. SKIN: No rash, no excess
[2021-03-12 16:00] VITALS: BP 146/88; PULSE 78; RESP 18; TEMP 36.7
[2021-03-12] MEDS: SIMETHICONE 80 MG TAB.CHEW PO (16:25)
[2021-03-13 05:13] LABS: Ionized Calcium 4.1 mg/dL (4.8-5.6)
[2021-03-14 08:36] VITALS: BP 150/98; PULSE 80; RESP 20; TEMP 36.8; O2SAT 100
== END 2021-03-12 16:56 | disposition home or self-care (01) | DRG 787 ==
LOC: ANHOBOP 10:37 → ANHOBPP 10:38 → ANHOBOP 12:37 → ANHOBPP 12:37 → ANHOB2 03-09 08:26
PROVIDERS: Internal Medicine Nephrology; Physician Assistant; Admitting Provider Obstetrics & Gynecology; PCP Family Medicine; Visit Provider Obstetrics & Gynecology
PROC: 10D00Z1 Extraction of Products of Conception, Low, Open Approach (ICD-10-PCS; CPT 59514; principal; 2021-03-08 16:00)
PROC: 10D00Z1 Extraction of Products of Conception, Low, Open Approach (ICD-10-PCS; CPT 49000; 2021-03-08 16:00)
DX: O34.219 Maternal care for unspecified type scar from previous cesarean delivery (principal); O72.1 Other immediate postpartum hemorrhage; D62 Acute posthemorrhagic anemia; E87.1 Hypo-osmolality and hyponatremia; O99.285 Endocrine, nutritional and metabolic diseases complicating the puerperium; N83.7 Hematoma of broad ligament; O14.04 Mild to moderate pre-eclampsia, complicating childbirth; R34 Anuria and oliguria; O99.02 Anemia complicating childbirth; Z3A.36 36 weeks gestation of pregnancy; Z37.0 Single live birth; I95.81 Postprocedural hypotension; Z23 Encounter for immunization
CPT/HCPCS: 36415; 36430; 59025; 76775; 76856; 80048; 80053; 80069; 81001; 82330; 82550; 82570; 84156; 84295; 84300; 84550; 85014; 85018; 85025; 85027; 85380; 85384; 85610; 85730; 86592; 86644; 86850; 86900; 86901; 86920; 88307; 90471; 90653; 90715; 93005; A9270; G0008; J0131; J0360; J0690; J1200; J1940; J2250; J2270; J2274; J2370; J2405; J2590; J2597; J2704; J3010; J3475; J3480; J7030; J7040; J7050; J7070; J7120; J7121; P9016

== ENCOUNTER 2021-03-14 07:52 | Outpatient (CLI) | payer OTHER, SELFPAY ==
[2021-03-14 08:33] LABS: Hematocrit 23.9 % (37.0-47.0); Hemoglobin 7.8 g/dL (12.0-15.0)
[2021-03-14 08:46] LABS: Alanine Aminotransferase 20 U/L (4-35); Albumin Level 2.8 g/dL (3.5-5.1); Alkaline Phosphatase 157 U/L (38-126); Anion Gap 4 mmol/L (8-16); Aspartate Amino Transferase 31 U/L (14-36); Bilirubin,Total 0.3 mg/dL (0.2-1.3); Blood Urea Nitrogen 9 mg/dL (7-17); Calcium 7.9 mg/dL (8.4-10.2); Carbon Dioxide 25 mmol/L (22-30); Chloride 104 mmol/L (98-107); Estimated Glomerular Filt Rate 57; Glucose 82 mg/dL (65-110); Potassium 4.1 mmol/L (3.4-5.0); Sodium 133 mmol/L (137-145)
== END 2021-03-14 07:53 | disposition home or self-care (01) ==
LOC: ANHLAB 07:54
PROVIDERS: PCP Family Medicine; Visit Provider Obstetrics & Gynecology
DX: O72.1 Other immediate postpartum hemorrhage (principal)
CPT/HCPCS: 36415; 80053; 85014; 85018

== ENCOUNTER 2021-03-24 07:30 | Outpatient (CLI) | payer OTHER, SELFPAY ==
[2021-03-24 07:56] LABS: Alanine Aminotransferase 15 U/L (4-35); Albumin Level 3.9 g/dL (3.5-5.1); Alkaline Phosphatase 99 U/L (38-126); Anion Gap 5 mmol/L (8-16); Aspartate Amino Transferase 20 U/L (14-36); Bilirubin,Total 0.3 mg/dL (0.2-1.3); Blood Urea Nitrogen 8 mg/dL (7-17); Carbon Dioxide 24 mmol/L (22-30); Chloride 107 mmol/L (98-107); Estimated Glomerular Filt Rate > 60; Glucose 93 mg/dL (65-110); Potassium 3.8 mmol/L (3.4-5.0); Sodium 136 mmol/L (137-145)
[2021-03-24 07:57] LABS: Basophils Absolute Auto 0.1 K/mm3 (0.0-0.1); Basophils Percent Auto 1.1 % (0.2-1.2); Eosinophils Absolute Auto 0.1 K/mm3 (0-0.3); Eosinophils Percent Auto 2.5 % (0-4.4); Hematocrit 31.3 % (37.0-47.0); Hemoglobin 9.8 g/dL (12.0-15.0); Immature Granulocyte Absolute 0.02 K/mm3 (0.00-0.031); Immature Granulocyte Percent A 0.4 % (0-0.5); Lymphocytes Absolute Auto 1.79 K/mm3 (0.9-3.2); Lymphocytes Percent Auto 32.1 % (18.3-44.2); Mean Corpuscular HGB Conc 31.3 g/dl (32-36); Mean Corpuscular Hemoglobin 27.5 pg (26-34); Mean Corpuscular Volume 87.7 fl (80-100); Mean Platelet Volume 8.8 fl (7.4-10.4); Monocytes Absolute Auto 0.4 K/mm3 (0.1-0.6); Neutrophils Absolute Auto 3.2 K/mm3 (1.3-6.7); Neutrophils Percent Auto 56.9 % (45.5-73.1); Platelet Count Result 477 k/mm3 (150-375); Red Blood Count 3.57 M/mm3 (4.2-5.4); White Blood Count 5.6 K/mm3 (4.5-10.0)
== END 2021-03-24 07:31 | disposition home or self-care (01) ==
LOC: ANHLAB 07:32
PROVIDERS: PCP Family Medicine; Visit Provider Obstetrics & Gynecology
DX: Z48.89 Encounter for other specified surgical aftercare (principal)
CPT/HCPCS: 36415; 80053; 85025

== ENCOUNTER 2023-01-30 07:53 | Outpatient (CLI) | payer OTHER, SELFPAY ==
--- NOTE | ~2023-01-30 | MM_ITS ---
EXAMINATION: MM screening martina BI w abdullahi HISTORY: Screening mammogram TECHNIQUE: Craniocaudal and mediolateral oblique 3-D tomosynthesis images were obtained and synthetic 2-D images were generated. CAD analysis was submitted and interpreted. COMPARISON: No prior mammogram is available for comparison at this institution. BREAST PARENCHYMAL COMPOSITION: There are scattered areas of fibroglandular density. FINDINGS: There is no evidence of suspicious mass, calcification, or architectural distortion to sugg est malignancy in either breast. IMPRESSION: 1. No mammographic evidence of malignancy. 2. Recommend routine screening mammography in one year. BI-RADS Category 1: Negative Reviewed, dictated and finalized at location A.
== END 2023-01-30 07:54 | disposition home or self-care (01) ==
LOC: ANHIMG 07:54
PROVIDERS: PCP Family Medicine; Visit Provider Obstetrics & Gynecology
DX: Z12.31 Encounter for screening mammogram for malignant neoplasm of breast (principal); Z80.3 Family history of malignant neoplasm of breast
CPT/HCPCS: 77063; 77067

== ENCOUNTER 2024-05-05 07:28 | Outpatient (CLI) | payer BC, SELFPAY ==
--- NOTE | ~2024-05-05 | MM_ITS ---
EXAMINATION: MM screening [facility] BI w abdullahi HISTORY: Screening TECHNIQUE: Craniocaudal and mediolateral oblique 3-D tomosynthesis images were obtained and synthetic 2-D images were generated. CAD analysis was submitted and interpreted. COMPARISON: Comparison to multiple prior studies sequentially, with oldest reviewed study dated 01/08. BREAST PARENCHYMAL COMPOSITION: Not Dense: The breasts are almost entirely fatty. FINDINGS: There is no evidence of suspicious mass, calcification, or architectural distortion to sugg est malignancy in either breast. There has been no suspicious interval change. IMPRESSION: 1. No mammographic evidence of malignancy. 2. Recommend routine screening mammography in one year. BI-RADS Category 1: Negative Reviewed, dictated and finalized at location A. 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
--- OUTSIDE RECORDS SUMMARY | 2024-05-05 07:32 | XMS_ITS | Data Portability ---
Author Organization [facility] Address [address] [place] [address] Assessment No assessment recorded. Plan of Treatment Reminders Order Date Submit Date Provider Last Modified By Organization Details Last Modified Time Details Appointments None recorded . Lab lipid panel, serum 2019 020 [facility], [address] [place] [address], [facility] [address], [place], [address], 0 08:37:50 TSH, ultra-se nsitive, serum 2019 020 [facility], [address] [place] [address], [facility] [address], [place], [address], 0 08:37:50 Referral None recorded . Procedures None recorded . Surgeries None recorded . Imaging None recorded . Medication Orders Augmenti n 875 mg-125 mg tablet 2015 016 [id number], [address], [place], [id number], 0 13:09:21 naproxen 500 mg tablet 2019 020 [facility], [address], [place], [id number], 1 15:16:47 predniso ne 20 mg tablet 2020 021 [id number], [address], [place], [id number], 1 11:39:03 Patient TargetsNo targets recorded. Patient Instructions Encounter Date Encounter Id Patient Instructions Last Modified By Organization Details Last Modified Time 05/15/2019 [id number] Patient Health Questionnaire-9* [email or web address] Not available 05/15/2019 15:58:24 Reason for Referral None Reported. Results Created Date Observation Date Name Description Value Unit Range Abnormal Flag Note LastModifiedBy Organization Detail LastModifiedTime 05/22/19 20 05/23/2019 lipid panel , serum cholesterol, total 188 mg/dL 100-19 9 Not Available [facility] ([facility]) [address] [place], [address], 05/23/2019 08:37:50 05/22/19 20 05/23/2019 lipid panel , serum triglyceride s 107 mg/dL 0-149 Not Available [facility] ([facility]) [address] [place], [address], 05/23/2019 08:37:50 05/22/19 20 05/23/2019 lipid panel , serum HDL cholesterol 41 mg/dL >39 Not Available [facility] ([facility]) [address] [place], [address], 05/23/2019 08:37:50 05/22/19 20 05/23/2019 lipid panel , serum VLDL cholesterol shantell 21 mg/dL 5-40 Not Available [facility] ([facility]) [address] [place], [address], 05/23/2019 08:37:50 05/22/1905/23/2019 lipid panel , serum LDL cholesterol calc 126 mg/dL 0-99 above high normal Not Available [facility] ([facility]) [address] [place], [address], 05/23/2019 08:37:50 05/22/19 20 05/23/2019 lipid panel , serum 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, [place], [address], 05/23/2019 08:37:50 Result Notes None recorded. Problems No Known Problems Medical Equipment None Reported. Allergies No known drug allergies Medications Name Sig Start Date Stop Date Status Note LastModified by Organization Details LastModified Time methocarbamo l 500 mg tablet TAKE 2 TABLETS BY MOUTH EVERY 6 HOURS NEEDED 07/22 completed Not Available Not Available Not Available clindamycin HCl 300 mg capsule TK 1 C PO QID TAT 07/22 completed Not Available Not Available Not Available benzonatate 200 mg capsule Take 1 capsule 3 times a day by oral route. 11/26 completed Not Available Not Available Not Available hydrocodone 5 mg-acetamino phen 325 mg tablet TK 1 T PO Q 4-6 H PRF PAIN 07/22 completed Not Available Not Available Not Available ondansetron HCl 4 mg tablet TK 1 T PO Q 6 H PRF NAUSEA OR VOM 07/22 completed Not Available Not Available Not Available prednisone 20 mg tablet Take 2 tablets by mouth for 5 days then 1 tablet by mouth for 5 days 10/18 completed Not Available Not Available Not Available sulfamethoxa zole 800 mg-trimethop rim 160 mg tablet active Not Available Not Available Not Available amoxicillin 500 mg tablet 05/14 completed Not Available Not Available Not Available famotidine 20 mg tablet TK 1 T PO BID 07/22 completed Not Available Not Available Not Available dicyclomine 20 mg tablet TK 1 T PO TID 07/22 completed Not Available Not Available Not Available cephalexin 500 mg capsule 05/14 completed Not Available Not Available Not Available Cheratussin AC 10 mg-100 mg/5 mL oral liquid Take 10 mL every 6-8 hours by oral route. 11/26 completed Not Available Not Available Not Available methylpredni solone 4 mg tablets in a dose pack 06/26 completed Not Available Not Available Not Available naproxen 500 mg tablet Take 1 tablet twice a day by oral route for 20 days. 07/22 completed Not Available Not Available Not Available amoxicillin 875 mg-potassium clavulanate 125 mg tablet Take 1 tablet every 12 hours by oral route. 05/14 completed Not Available Not Available Not Available Vitals Date Recorded Body height Provider Name an d Address Organization Details Last Updated DateTime 05/15/2019 172.72 cm JOSE RAMON Sargent [facility] 05/15/2019 14:32:24 Date Recorded Body mass index (BMI) Body weight Provider Name and Address Organization Details Last Updated DateTime 05/15/2019 38.8 kg/m2 340352.75 g JOSE RAMON Sargent [facility] 05/15/2019 14:32:39 Date Recorded Oxygen saturation Oxygen saturation in Arterial blood by Pulse oximetry Provider Name and Address Organization Details Last Updated DateTime 05/15/2019 99 % 99 % Mckenna merida [facility] 05/15/2019 14:33:59 Date Recorded Heart rate Provider Name an d Address Organization Details Last Updated DateTime 05/15/2019 102 /min JOSE RAMON Sargent [facility] 05/15/2019 14:34:03 Date Recorded Body temperature Provider Name a nd Address Organization Details Last Updated DateTime 05/15/2019 98.8 [degF] JOSE RAMON Sargent [facility] 05/15/2019 14:34:10 Date Recorded Body height Provider Name an d Address Organization Details Last Updated DateTime 05/22/2019 172.72 cm JOSE RAMON Cabrales [facility] 05/22 09:24:41 Date Recorded Body height Provider Name an d Address Organization Details Last Updated DateTime 06/27/2019 172.72 cm JOSE RAMON Cabrales [facility] 06/26 10:39:34 Date Recorded Body mass index (BMI) Body weight Provider Name and Address Organization Details Last Updated DateTime 06/27/2019 39.3 kg/m2 675808.63 g JOSE RAMON Cabrales [facility] 06/27/2019 10:40:19 Date Recorded Oxygen saturation Oxygen saturation in Arterial blood by Pulse oximetry Provider Name and Address Organization Details Last Updated DateTime 06/27/2019 97 % 97 % Joelle Mcneill [facility] 06/27/2019 10:40:26 Date Recorded Heart rate Provider Name an d Address Organization Details Last Updated DateTime 06/27/2019 90 /min Joelle Mcneill MA [facility] 06/26 10:40:30 Date Recorded Body temperature Provider Name a nd Address Organization Details Last Updated DateTime 06/27/2019 98.7 [degF] Joelle Mcneill MA [facility] 06/27/2019 10:40:40 Date Recorded Body height Provider Name an d Address Organization Details Last Updated DateTime 07/22/2020 172.72 cm Jazz Hunt [facility] 07/22/2020 15:15:51 Date Recorded Body mass index (BMI) Body weight Provider Name and Address Organization Details Last Updated DateTime 07/22/2020 39.7 kg/m2 557733.31 g Jazz Hunt [facility] 07/22/2020 15:16:01 Date Recorded Oxygen saturation Oxygen saturation in Arterial blood by Pulse oximetry Provider Name and Address Organization Details Last Updated DateTime 07/22/2020 98 % 98 % Jazz Hunt MA [facility] 07/22/2020 15:16:15 Date Recorded Body temperature Provider Name a nd Address Organization Details Last Updated DateTime 07/22/2020 98 [degF] Jazz Hunt MA [facility] 07/22/2020 15:16:24 Date Recorded Body weight Provider Name an d Address Organization Details Last Updated DateTime 03/28/2016 555500.98 g Kirk Jose [facility] 03/28/2016 15:04:16 Date Recorded Body height Body mass index (BMI) Provider Name and Address Organization Details Last Updated DateTime 03/28/2016 170.18 cm 37.3 kg/m2 Kirk Jose [facility] 03/28/2016 15:04:20 Date Recorded Heart rate Provider Name an d Address Organization Details Last Updated DateTime 03/28/2016 96 /min Kirk Jose [facility] 03/10 15:06:14 Date Recorded Respiratory rate Provider Name a nd Address Organization Details Last Updated DateTime 03/28/2016 16 /min Kirk Jose [facility] 03/28/2016 15:06:16 Date Recorded Body temperature Provider Name a nd Address Organization Details Last Updated DateTime 03/28/2016 98.5 [degF] Kirk Jose MA [facility] 03/28/2016 15:06:58 Date Recorded Systolic blood pressure Diastolic blood pressure Provider Name and Address Organization Details Last Updated DateTime 05/15/2019 118 mm[Hg] 78 mm[Hg] Mckenna merida [facility] 05/15/2019 14:32:17 Date Recorded Systolic blood pressure Diastolic blood pressure Provider Name and Address Organization Details Last Updated DateTime 06/27/2019 122 mm[Hg] 82 mm[Hg] Joelle Mcneill MA [facility] 06/27/2019 10:39:59 Date Recorded Systolic blood pressure Diastolic blood pressure Provider Name and Address Organization Details Last Updated DateTime 07/22/2020 126 mm[Hg] 72 mm[Hg] Jazz Hunt MA [facility] 07/22/2020 15:15:38 Date Recorded Systolic blood pressure Diastolic blood pressure Provider Name and Address Organization Details Last Updated DateTime 03/28/2016 128 mm[Hg] 80 mm[Hg] Kirk Jose MA [facility] 03/28/2016 15:05:51 Social History Question Answer Notes LastModified by Organizat ion Details LastModified Time Tobacco Smoking Status Never Smoker Sirisha Oritz MA null, [facility] 06/12/2014 09:54:31 What Is Your Level Of Alcohol Consumption? None Information not available 07/22/2020 Live Alone Or With Others? With Others Information not available 05/15/2019 How Many Children Do You Have? 1 Information not available 05/15/2019 Do You Use Any Illicit Or Recreational Drugs? No Information not available 07/22/2020 Do You Or Have You Ever Used Any Other Forms Of Tobacco Or Nicotine? No Information not available 07/22/2020 Sex: Unknown Functional Status Question Answer Note LastModified by Organization D etails LastModified Time Are you able to care for yourself? Yes Information not available 05/15/2019 Mental Status None recorded. Family History Relationship Description Onset Age of this Age Resolved Age Notes LastModified by Organization Details LastModified Time Mother Malignant tumor of breast jayme Not available 2014 10:32:10 Father Hypertensive disorder [email or web address] Not available 04/10 17:25:36 Father Hyperlipidem ia kvalleroyma Not available 04/10 17:25:49 Medical History No medical history recorded. Gynecological History Statement/Question Response Flow Heavy Date of LMP 04/25/2019 Frequency of Cycle (Q days) 28 On BCP's at Conception? N Menses Monthly Y Date of Last Pap Smear Duration of Flow (days) 5 Current Control Method None LMP Definite Obstetrics History GPAL:G 0 P 0 0 0 0 Immunizations Vaccine Type Date Status Note Provider Nam e and Address Organization Details Recorded Time Tdap 0 completed Sirisha Ortiz MA [facility], [place] - [facility] 12/11/2014 14:48:32 Influenza, split virus, quadrivalent, preservative 0 completed MARISABEL VILLARREAL Attn: [address] [place], [address], [facility] 05/15/2019 15:58:25 Past Encounters Encounter ID Performer Location Encounter Start Date Encounter Closed Date Diagnosis/Indication Diagnosis SNOMED-CT Code Diagnosis ICD10 Code Diagnosis Note [id number] Elizabeth Johnson [address] [address] 06/12/2014 09:44:17 06/12/2014 10:24:10 Gastroenteritis 84215128 BRAT diet, small freq feedings Nexium otc 1 daily--yessica ples probiotics [id number] Gloria Bravo [address] [address] 10/19/2014 10:16:53 10/19/2014 11:16:37 Otitis media 29875904 start augmentin Cough 28225086 push fluids voice rest [id number] [address] [address] 12/17/2014 11:45:43 12/17/2014 12:36:58 Adult health examination 777311606 reviewed healthy lifestyle- -cont w/ wt watchers maybe a little constipate d d/y change of diet--try to take Metamucil daily--mor e fiber and water Family his tory of breast cancer [id number] reviewed fam hx--needs BRKEREN testinrita check insurance re coverage-- also needs to check into poss research programs for women w/ fam hx--names given and pt will check into [id number] 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 intol of trying to remove wax--try otc wax removal drops and start antibiotic . if no better in 2-3 day, will need to try to irrigate open [id number] MARISABEL VILLARREAL [address] [address] 05/15/2019 14:19:00 05/16/2019 10:28:06 Depression screening 918453790 Z13.31 - Negative depression screening Adult [facility] th examination 797767837 Z00.00 - Patient here to [facility] care- Patient will return for fasting labs- Patient currently trying to get - BP at goal <130/80 Administra tion of influenza vaccine 16338057 Z23 - Flu shot updated in office [id number] Joelle Mcneill MA [address] [address] 05/22/2019 09:21:06 05/23/2019 09:07:10 Adult health examination 649880666 Z00.00 - [facility]- Patient will return for fasting labs- Patient currently trying to get - BP at goal <130/80 [id number] Eva Duque MD [address] [address] 06/27/2019 10:33:56 06/30/2019 10:41:13 Pain in left arm 851429569 M79.602 - Will get urgent care records- Possible costal chondritis - Already completed steroid dose pack which helped- Advised on use of Naproxen twice a day, ice and rest as much as possible- Use muscle relaxer at night before bed- RTC if symptoms worsen or fail to improve [id number] MARISABEL VILLARREAL [facility] [address] [place] [address] 07/22/2020 15:03:24 07/23/2020 10:30:15 Shoulder pain 90504010 M25.519 - Patient has pain under right shoulder blade - Intermitte nt radiation to neck or down mid bicep - She denies any injury or new activity - No skin changes, lumps or rash noted - No erythema or edema - Will try steroid due to possible pinched never - She will contact office if no improvemen t in symptoms Health Concerns Section Related Observation LastModified by Organization Nikky bertrand LastModified Time None Recorded Concern Status LastModified by Organization Details LastModified Time None Recorded Advance Directives Directive None Recorded Payers Encounter Date Sequence Insurance Name Policy Number Policy Rodriguez Covered Member ID Rodriguez Member ID Guarantor Name 03/28/2016 1 [facility] [id number] Jonathan Gilmore [id number] Malcolm Gilmore 05/15/2019 1 [facility] [id number] Jonathan Gilmore [id number] Malcolm Gilmore 05/22/2019 1 [facility] [id number] Jonathan Gilmore [id number] Malcolm Gilmore 06/27/2019 1 [facility] [id number] Jonathan Gilmore [id number] Malcolm Gilmore 07/22/2020 1 *SELF PAY* Chad Gilmore 07/22/2020 1 [employer] [id number] Jonathan Gilmore [id number] Malcolm Gilmore Notes Date Note Type Note Provider Name and Address Organization Details Recorded Time 03/28/2016 text/html EaracheReported bypatient.[facility] started about 2 wks ago w/ cold--responded to decongestants but getting worse Severity:worsening Timing:worse PONCHO Bhardwaj-RENETTA Attn: Account[address] [facility], [place], [address], [place] - [facility] 03/28/2016 15:18:50 05/15/2019 text/html Patient here to re-establish care. She lives in [place]. 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 Freeman in [place] for her women's health. Her and her are trying for their second child. She states they started trying in March. It took her 14 months with her first . Patient reports heavy cycles after first baby. She also reports more facial hair. She states this has been going on for about 1.5 years. Her last menstrual period was April 25, 2019. She does not have any other complaints or concerns at this time. MARISABEL VILLARREAL Attn: [address] [place], [address], [facility] 05/15/2019 15:59:05 06/27/2019 text/html Patient here for left arm pain. She reports on June 13 that she started with chest pain that radiated down her left arm. She managed with Ibuprofen and it went away. She reports on the , it was not going away with Ibuprofen so she went to the urgent care. They performed an EKG which was normal. She was given a steroid and a muscle relaxer which did help. She reports the pain has improved, but still trouble sleeping on her left side. She denies any numbness or tingling. She is not dropping objects. 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 She reports the pain originates in the chest and shoots down her arm. She reports it happens about 2-3 times a day and resolves on its own. She does not recall an injury, but does have a toddler she picks up several times a day. Eva Duque MD Attn: [address] [place], [address], [facility] 06/28/2019 20:43:37 07/22/2020 text/html Patient here for back pain. She reports towards the end of May she started having some back pain on the right side. It started under shoulder blade. She reports sometimes it radiates to neck and around to mid bicep area. She reports she did have some swelling under her armpit that lasted about two days. That was two weeks ago. She did get her vaccine, but that was on the left arm and after the pain started. She denies numbness or tingling and no loss of knitted goods shaper strength. 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 She has not started any new tasks or exercise. 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 She does not recall any injury. JUDITH GARDNER, CHIP-C Attn: [address] [place], [address], [facility] 07/22/2020 15:58:54 OBGyn Episode No OBEpisode recorded.
== END 2024-05-05 07:29 | disposition home or self-care (01) ==
LOC: ANHIMG 07:29
PROVIDERS: PCP Family Medicine; Visit Provider Obstetrics & Gynecology
DX: Z12.31 Encounter for screening mammogram for malignant neoplasm of breast (principal)
CPT/HCPCS: 77063; 77067